=== PATIENT | female | born 1985 | race Caucasian/White ===

== ENCOUNTER 2024-12-11 10:46 | Observation (INO) | payer MEDICAID, OTHER ==
[2024-12-11] MEDS ORDERED: PREN1TAB71 OR (11:01)
--- NOTE | 2024-12-11 11:57 | DVH ---
BIOPHYSICAL PROFILE HISTORY: GDMA2 TECHNIQUE: Multiple transabdominal real-time grayscale sonographic images through the gravid uterus of the fetus with duplex Doppler color flow and M-mode spectral analysis FINDINGS: BIOPHYSICAL PROFILE: breathing score: 2 movement score: 2 tone score: 2 Quantitative ZULEYMA score: 2 (ZULEYMA: 12.9 Cm.) Total score: 8 The cervix was not seen Single live fetus in cephalic presentation. heart rate 139 beats per minute. Grade II anterior placenta without previa or abruption IMPRESSION: Biophysical profile score: 8
[2024-12-11] MEDS ORDERED: CHOL20007 PO (12:24)
[2024-12-11] MEDS ORDERED: METF-370 PO (12:24)
--- NOTE | 2024-12-12 14:29 | DVHDS2 ---
Physician Discharge Progress N Final Diagnosis: gdm Operations or Procedures: Operations or Procedures nst,sono Condition on Discharge: Good Disposition: Home Discharge Instructions: Diet: Consistent carbohydrate Activity: No Restrictions, As Tolerated Medications: na Follow Up Care: Specialist: 3d Discharge Statement: "Patient was advised to return to the ER or call 911 if any headaches, dizziness, shortness of breath, chest pain, abdominal pain, bleeding, fevers, or worsening of medical condition. Patient was counseled about treatment plan, medications, possible side effects, patientverbalized understanding. All questions were answered to the best of my ability. This discharge took greater then 30 minutes in planning, reviewing documentation, counseling the patient, and discussing with other team members." Visit Coding OBGYN Date of Service: Dec 11, 2024 Billing Provider: USMAN EPSTEIN DO CHECKERING MACHINE OPERATOR Common Visit Codes: [id number] INP/OBS CARE(HIGH) CHECKERING MACHINE OPERATOR Procedure Codes: 84694-79- NON-STRESS TEST USMAN EPSTEIN DO Dec 12, 2024 14:29
== END 2024-12-11 12:20 | disposition home or self-care (01) ==
LOC: UNDOADMOB 10:46 → LDRP 10:46 → UNDODISOB 12:20
PROVIDERS: ADMIT Obstetrics & Gynecology; ATTEND Obstetrics & Gynecology
DX: O24.419 Gestational diabetes mellitus in pregnancy, unspecified control (principal); Z98.890 Other specified postprocedural states; Z79.899 Other long term (current) drug therapy; Z3A.33 33 weeks gestation of pregnancy
CPT/HCPCS: 76818; 81002; 82948; 82962; G0378; 76819

== ENCOUNTER 2024-12-14 09:54 | Observation (INO) | payer MEDICAID ==
[~2024-12-14] VITALS: Ht 165.1 cm; Wt 81.6 kg
[~2024-12-14 09:54] MED LIST: CHOL20007 PO; METF-370 PO; PREN1TAB71 OR
--- NOTE | 2024-12-14 10:50 | DVH ---
BIOPHYSICAL PROFILE HISTORY: GDMA2 TECHNIQUE: Multiple transabdominal real-time grayscale sonographic images through the gravid uterus of the fetus with duplex Doppler color flow and M-mode spectral analysis FINDINGS: BIOPHYSICAL PROFILE: breathing score: 2 movement score: 2 tone score: 2 Quantitative ZULEYMA score: 2 (ZULEYMA: 15.3 Cm.) Total score: 8/8 Single live fetus in cephalic presentation. heart rate 152 beats per minute. Anterior placenta without previa or abruption Biophysical profile score 8/8 corresponding to an NANCY of 01/27/25 IMPRESSION: Biophysical profile score: 8/8
--- NOTE | 2024-12-19 14:40 | DVHDS2 ---
Physician Discharge Progress N Final Diagnosis: gdm 33wks Operations or Procedures: Operations or Procedures nst,sono Condition on Discharge: Good Disposition: Home Discharge Instructions: Diet: Consistent carbohydrate Activity: Light activity Medications: na Follow Up Care: Specialist: 3d Discharge Statement: "Patient was advised to return to the ER or call 911 if any headaches, dizziness, shortness of breath, chest pain, abdominal pain, bleeding, fevers, or worsening of medical condition. Patient was counseled about treatment plan, medications, possible side effects, patientverbalized understanding. All questions were answered to the best of my ability. This discharge took greater then 30 minutes in planning, reviewing documentation, counseling the patient, and discussing with other team members." Visit Coding OBGYN Date of Service: Dec 14, 2024 Billing Provider: USMAN EPSTEIN DO EARLY CHILDHOOD EDUCATION SPECIALIST Common Visit Codes: 74258-[id number] OBS CARE (HIGH) EARLY CHILDHOOD EDUCATION SPECIALIST Procedure Codes: 09887-65- NON-STRESS TEST USMAN EPSTEIN DO Dec 19, 2024 14:40
== END 2024-12-14 11:33 | disposition home or self-care (01) ==
LOC: LDRP 09:54
PROVIDERS: ADMIT Obstetrics & Gynecology; ATTEND Obstetrics & Gynecology
DX: O24.419 Gestational diabetes mellitus in pregnancy, unspecified control (principal); Z3A.33 33 weeks gestation of pregnancy; Z79.899 Other long term (current) drug therapy
CPT/HCPCS: 76818; 81002; 82948; 82962; 94760; G0378; 76819

== ENCOUNTER 2024-12-18 06:09 | Observation (INO) | payer MEDICAID ==
--- NOTE | 2024-12-18 08:51 | DVH ---
BIOPHYSICAL PROFILE HISTORY: gdma1 TECHNIQUE: Multiple transabdominal real-time grayscale sonographic images through the gravid uterus of the fetus with duplex Doppler color flow and M-mode spectral analysis FINDINGS: BIOPHYSICAL PROFILE: breathing score: 2 movement score: 2 tone score: 2 Quantitative ZULEYMA score: 2 (ZULEYMA: 12.5 Cm.) Total score: 8 The cervix not well visualized. Single live fetus in cephalic presentation. heart rate 134 beats per minute. Anterior placenta without previa or abruption IMPRESSION: Biophysical profile score: 8/8
--- NOTE | 2024-12-19 12:39 | DVHDS2 ---
Physician Discharge Progress N Final Diagnosis: gdm 34 wks Operations or Procedures: Operations or Procedures nst,sono Condition on Discharge: Good Disposition: Home Discharge Instructions: Diet: Regular Activity: No Restrictions, As Tolerated Medications: na Follow Up Care: Specialist: 4d Discharge Statement: "Patient was advised to return to the ER or call 911 if any headaches, dizziness, shortness of breath, chest pain, abdominal pain, bleeding, fevers, or worsening of medical condition. Patient was counseled about treatment plan, medications, possible side effects, patientverbalized understanding. All questions were answered to the best of my ability. This discharge took greater then 30 minutes in planning, reviewing documentation, counseling the patient, and discussing with other team members." Visit Coding OBGYN Date of Service: Dec 18, 2024 Billing Provider: USMAN EPSTEIN DO FABRIC WORKER FOREMAN Common Visit Codes: 63295-[id number] OBS CARE (HIGH) FABRIC WORKER FOREMAN Procedure Codes: 27447-80- NON-STRESS TEST USMAN EPSTEIN DO Dec 19, 2024 12:39
== END 2024-12-18 10:22 | disposition home or self-care (01) ==
LOC: LDRP 08:05 → UNDOADMOB 08:05 → LDRP 08:13
PROVIDERS: ADMIT Obstetrics & Gynecology; ATTEND Obstetrics & Gynecology
DX: O24.419 Gestational diabetes mellitus in pregnancy, unspecified control (principal); Z98.890 Other specified postprocedural states; Z79.899 Other long term (current) drug therapy; Z3A.34 34 weeks gestation of pregnancy
CPT/HCPCS: 59025; 76819; 81002; 82948; 82962; 94760; G0378

== ENCOUNTER 2024-12-21 09:51 | Observation (INO) | payer MEDICAID ==
--- NOTE | 2024-12-21 10:37 | DVH ---
Procedure: US BIOPHYSICAL PROFILE 12/21/2024 10:05 AM Indication: GDMA2 Comparison: US BIOPHYSICAL PROFILE on DOS: 12/18/24, US BIOPHYSICAL PROFILE on DOS: 12/14/24, US BIOPHYSI KARYL PROFILE on DOS: 12/11/24 Technique: Sonogram of gravid uterus utilizing grayscale and color techniques. FINDINGS: Single living intrauterine gestation. Presentation: Cephalic Placenta: Anterior heart rate: 140 bpm ZULEYMA: 10.9 cm, DVP: 4 cm Maternal cervix: Not visualized Biophysical Profile: breathing score: 2 movement score: 2 tone: 2 Quantitative ZULEYMA score: 2 Total score: 8/8 IMPRESSION: 1. Single living as above. 2. Biophysical profile score: 8/8.
--- NOTE | 2024-12-21 12:44 | DVHDS2 ---
Physician Discharge Progress N Final Diagnosis: 34wks gdm Operations or Procedures: Operations or Procedures nst,sono Condition on Discharge: Good Disposition: Home Discharge Instructions: Diet: Consistent carbohydrate Activity: No Restrictions, As Tolerated Medications: na Follow Up Care: Specialist: 1w Discharge Statement: "Patient was advised to return to the ER or call 911 if any headaches, dizziness, shortness of breath, chest pain, abdominal pain, bleeding, fevers, or worsening of medical condition. Patient was counseled about treatment plan, medications, possible side effects, patientverbalized understanding. All questions were answered to the best of my ability. This discharge took greater then 30 minutes in planning, reviewing documentati on, counseling the patient, and discussing with other team members." Visit Coding OBGYN Date of Service: Dec 21, 2024 Billing Provider: USMAN EPSTEIN DO SECURITY INCIDENT RESPONSE ENGINEER Common Visit Codes: 22290-[id number] OBS CARE (HIGH) SECURITY INCIDENT RESPONSE ENGINEER Procedure Codes: 32975-91- NON-STRESS TEST USMAN EPSTEIN DO Dec 21, 2024 12:44
[2024-12-28] MEDS ORDERED: CEPH250C PO (09:10)
== END 2024-12-21 11:30 | disposition home or self-care (01) ==
LOC: LDRP 09:51
PROVIDERS: ADMIT Obstetrics & Gynecology; ATTEND Obstetrics & Gynecology
DX: O24.419 Gestational diabetes mellitus in pregnancy, unspecified control (principal); Z3A.34 34 weeks gestation of pregnancy; Z79.899 Other long term (current) drug therapy
CPT/HCPCS: 59025; 76819; 81002; 82948; 82962; 94760; G0378

== ENCOUNTER 2024-12-25 06:14 | Observation (INO) | payer MEDICAID ==
--- NOTE | 2024-12-25 09:13 | DVH ---
CLINICAL HISTORY: Gestational diabetes. COMPARISON: US BIOPHYSICAL PROFILE on DOS: 12/21/24, US BIOPHYSICAL PROFILE on DOS: 12/18/24, US BIOPHYS ICAL PROFILE on DOS: 12/14/24 TECHNIQUE: biophysical profile was performed. Transabdominal sonographic images of the fetus we re obtained. FINDINGS: The fetus is in cephalic position. heart rate measures 139 BPM. Amniotic fluid index measures 11.0 cm. The placenta is anterior in position. BPP profile is an overall score of 8/8, with 2/2 points for breathing, with at least one episode of breathing over a 30 second duration during a 30 minute observation, 2/2 points for m ovements, with 3 or more discrete body or limb movements, 2/2 points for tone, with one or more episodes of extremity extension with return to flexion, or opening and closing of hand, and 2/ 2 points for amniotic fluid, with at least 1 pocket of amniotic fluid that measures 2 cm in 2 perpend icular planes. IMPRESSION: BPP score of 8/8.
--- NOTE | 2024-12-25 22:55 | DVHDS2 ---
Discharge Summary Date of Admission Dec 25, 2024 at 08:10 Date of Discharge: Dec 25, 2024 Admitting Diagnosis GDM A2 NST 35 10/20 Brief Hx & Hospital Course: reassuring fht Consults/Reason for consult GDM A2 Condition at Discharge: Good Final Diagnosis/Problems List Discharge Disposition: Home Discharge Instruct/Medications Diet: Consistent carbohydrate Activity: No Restrictions, As Tolerated Activity comment: kick counts labor precautions Discharge Statement: "Patient was advised to return to the ER or call 911 if any headaches, dizziness, shortness of breath, chest pain, abdominal pain, bleeding, fevers, or worsening of medical condition. Patient was counseled about treatment plan, medications, possible side effects, patientverbalized understanding. All questions were answered to the best of my ability. This discharge took greater then 30 minutes in planning, reviewing documentation, counseling the patient, and discussing with other team members." ASSESSMENT ASSESSMENT Assessment Visit Coding OBGYN Date of Service: Dec 25, 2024 Billing Provider: REAL ZAMUDIO DO IT SERVICE MANAGER Common Visit Codes: 19190-MLO/OBS SAME DATE (LOW), 42381-KML/OBS SAME DATE (MOD), 60302-IIS/OBS SAME DATE (HIGH) IT SERVICE MANAGER Procedure Codes: 64643-11- NON-STRESS TEST REAL ZAMUDIO DO Dec 25, 2024 22:55
[2024-12-28] MEDS ORDERED: CEPH250C PO (09:10)
== END 2024-12-25 09:43 | disposition home or self-care (01) ==
LOC: LDRP 08:10
PROVIDERS: ADMIT Obstetrics & Gynecology; ATTEND Obstetrics & Gynecology
DX: O24.419 Gestational diabetes mellitus in pregnancy, unspecified control (principal); Z79.899 Other long term (current) drug therapy; Z3A.35 35 weeks gestation of pregnancy
CPT/HCPCS: 59025; 76819; 81002; 82948; 94760; G0378

== ENCOUNTER 2024-12-28 06:17 | Observation (INO) | payer MEDICAID ==
--- NOTE | 2024-12-28 08:54 | DVH ---
CLINICAL HISTORY: Gestational diabetes. COMPARISON: US BIOPHYSICAL PROFILE on DOS: 12/25/24, US BIOPHYSICAL PROFILE on DOS: 12/21/24, US BIOPHY SICAL PROFILE on DOS: 12/18/24 TECHNIQUE: biophysical profile was performed. Transabdominal sonographic images of the fetus we re obtained. FINDINGS: The fetus is in cephalic position. heart rate measures 138 BPM. Amniotic fluid index measures 11.5 cm. The placenta is anterior in position. No visualized evidence for placenta previa or abruption. BPP profile is an overall score of 8/8, with 2/2 points for breathing, with at least one episode of breathing over a 30 second duration during a 30 minute observation, 2/2 points for m ovements, with 3 or more discrete body or limb movements, 2/2 points for tone, with one or more episodes of extremity extension with return to flexion, or opening and closing of hand, and 2/ 2 points for amniotic fluid, with at least 1 pocket of amniotic fluid that measures 2 cm in 2 perpend icular planes. IMPRESSION: BPP score of 8/8.
[2024-12-28] MEDS ORDERED: CEPH250C PO ×2 (09:10)
--- NOTE | 2024-12-30 08:17 | DVHDS2 ---
Physician Discharge Progress N Final Diagnosis: gdm 35 wks Operations or Procedures: Operations or Procedures nst,sono Condition on Discharge: Good Disposition: Home Discharge Instructions: Diet: Consistent carbohydrate Activity: No Restrictions, As Tolerated Medications: na Follow Up Care: Specialist: 3d Discharge Statement: "Patient was advised to return to the ER or call 911 if any headaches, dizziness, shortness of breath, chest pain, abdominal pain, bleeding, fevers, or worsening of medical condition. Patient was counseled about treatment plan, medications, possible side effects, patientverbalized understanding. All questions were answered to the best of my ability. This discharge took greater then 30 minutes in planning, reviewing documentat ion, counseling the patient, and discussing with other team members." Visit Coding OBGYN Date of Service: Dec 28, 2024 Billing Provider: USMAN EPSTEIN DO FIRST AID OFFICER Common Visit Codes: 08669-[id number] INP/OBS CARE (HIGH) FIRST AID OFFICER Procedure Codes: 03406-48- NON-STRESS TEST USMAN EPSTEIN DO Dec 30, 2024 08:17
== END 2024-12-28 09:28 | disposition home or self-care (01) ==
LOC: UNDOADMOB 08:13 → LDRP 08:13 → UNDODISOB 09:28
PROVIDERS: ADMIT Obstetrics & Gynecology; ATTEND Obstetrics & Gynecology
DX: O24.419 Gestational diabetes mellitus in pregnancy, unspecified control (principal); Z3A.35 35 weeks gestation of pregnancy; Z79.899 Other long term (current) drug therapy; Z98.890 Other specified postprocedural states
CPT/HCPCS: 59025; 76819; 81002; 82948; 82962; G0378

== ENCOUNTER 2025-01-02 08:10 | Observation (INO) | payer MEDICAID ==
[~2025-01-02 08:10] MED LIST changes: +CEPH250C PO
--- NOTE | 2025-01-02 09:02 | DVH ---
BIOPHYSICAL PROFILE HISTORY: GDMA2 TECHNIQUE: Multiple transabdominal real-time grayscale sonographic images through the gravid uterus of the fetus with duplex Doppler color flow and M-mode spectral analysis FINDINGS: BIOPHYSICAL PROFILE: breathing score: 2 movement score: 2 tone score: 2 Quantitative ZULEYMA score: 2 (ZULEYMA: 14.0 Cm.) Total score: 8 The cervix not well visualized. Single live fetus in cephalic presentation. heart rate 138 beats per minute. Anterior placenta without previa or abruption IMPRESSION: Biophysical profile score: 9
--- NOTE | 2025-01-02 09:28 | DVHDS2 ---
Physician Discharge Progress N Final Diagnosis: testing for GDM, A2 Operations or Procedures: Operations or Procedures 39yo IUP@36.3wks VSS NST reactive FKC/PTL precautions reviewed Other Interventions Other Interventions [address] [address] Ph: [phone] DIAGNOSTIC IMAGING Diagnostic Imaging Report : [id number] Signed PATIENT: JANE PERERA ACCT: [id number] UNIT: [id number] : 1985 LOC: [facility] ROOM / BED: TRIAGE2 / A AGE / SEX: 39 / F ADM STATUS: ADM IN SERVICE 7 ORDERING PHYSICIAN: MYRA ROY CNM PROCEDURE(s): BPP - BIOPHYSICAL PROFILE REASON: GDMA2 ORDER NUMBER(s): [id number], ACCESSION NUMBER(s): [id number] BIOPHYSICAL PROFILE HISTORY: GDMA2 TECHNIQUE: Multiple transabdominal real-time grayscale sonographic images through the gravid uterus of the fetus with duplex Doppler color flow and M-mode spectral analysis FINDINGS: BIOPHYSICAL PROFILE: breathing score: 2 movement score: 2 tone score: 2 Quantitative ZULEYMA score: 2 (ZULEYMA: 14.0 Cm.) Total score: 8 The cervix not well visualized. Single live fetus in cephalic presentation. heart rate 138 beats per minute. Anterior placenta without previa or abruption IMPRESSION: Biophysical profile score: 9 ATED BY: LORY ARCEO MD DICTATED DATE/TIME: 01/02/25899 SIGNED BY: LORY ARCEO MD SIGNED DATE/TIME: 01/02/25899 CC: Condition on Discharge: Stable Disposition: Home Discharge Instructions: Diet: Consistent carbohydrate Activity: No Restrictions, As Tolerated Medications: see med list Follow Up Care: Specialist: f/u in 3 days Discharge Statement: "Patient was advised to return to the ER or call 911 if any headaches, dizz iness, shortness of breath, chest pain, abdominal pain, bleeding, fevers, or worsening of medical condition. Patient was counseled about treatment plan, medications, possible side effects, patientverbalized understanding. All questions were answered to the best of my ability. This discharge took greater then 30 minutes in planning, reviewing documentation, counseling the patient, and discussing with other team members." Visit Coding OBGYN Date of Service: Jan 02, 2025 Billing Provider: MYRA ROY CNM RAW SCALES OPERATOR Common Visit Codes: 61741-[id number] OBS CARE (HIGH) RAW SCALES OPERATOR Procedure Codes: 15830-64- NON-STRESS TEST MYRA ROY CNM Jan 02, 2025 09:28
== END 2025-01-02 09:18 | disposition home or self-care (01) ==
LOC: UNDOADMOB 08:10 → LDRP 08:10 → UNDODISOB 09:18
PROVIDERS: ADMIT Obstetrics & Gynecology; ATTEND Obstetrics & Gynecology
DX: O24.419 Gestational diabetes mellitus in pregnancy, unspecified control (principal); O09.529 Supervision of elderly multigravida, unspecified trimester; Z98.890 Other specified postprocedural states; Z79.899 Other long term (current) drug therapy; Z3A.36 36 weeks gestation of pregnancy
CPT/HCPCS: 59025; 76819; 81002; 82948; 82962; 94760; G0378

== ENCOUNTER 2025-01-05 08:55 | Observation (INO) | payer MEDICAID ==
--- NOTE | 2025-01-05 10:05 | DVH ---
BIOPHYSICAL PROFILE HISTORY: GDMA2 Comparison Study: none TECHNIQUE: Multiple real-time grayscale sonographic images through the gravid uterus of the fetus wi th duplex Doppler color flow and M-mode spectral analysis FINDINGS: BIOPHYSICAL PROFILE: breathing score: 2 movement score: 2 tone score: 2 Quantitative ZULEYMA score: 2 (ZULEYMA: 9.8 Cm.) Total score: 8 The cervix is not visualized Single live fetus in cephalic presentation. heart rate 161 beats per minute. Anterior placenta without previa or abruption IMPRESSION: Biophysical profile score: 8
--- NOTE | 2025-01-05 18:13 | DVHDS2 ---
Physician Discharge Progress N Final Diagnosis: GDMA2 Secondary Diagnosis: Encounter for NST/BPP Operations or Procedures: Operations or Procedures NST/BPP/ZULEYMA Commentary: Commentary PATIENT: JANE PERERA ACCT: [id number] UNIT: [id number] : 1985 LOC: [facility] ROOM / BED: [facility] / A AGE / SEX: 39 / F ADM STATUS: ADM IN SERVICE 0915 ORDERING PHYSICIAN: KANNAN SHI DO PROCEDURE(s): BPP - BIOPHYSICAL PROFILE REASON: GDMA2 ORDER NUMBER(s): [id number], ACCESSION NUMBER(s): [id number] BIOPHYSICAL PROFILE HISTORY: GDMA2 Comparison Study: none TECHNIQUE: Multiple real-time grayscale sonographic images through the gravid uterus of the fetus with duplex Doppler color flow and M-mode spectral analysis FINDINGS: BIOPHYSICAL PROFILE: breathing score: 2 movement score: 2 tone score: 2 Quantitative ZULEYMA score: 2 (ZULEYMA: 9.8 Cm.) Total score: 8 The cervix is not visualized Single live fetus in cephalic presentation. heart rate 161 beats per minute. Anterior placenta without previa or abruption IMPRESSION: Biophysical profile score: 8 ATED BY: DANIEL NELSON MD DICTATED DATE/TIME: 01/05/25 1002 Condition on Discharge: Stable Disposition: Home Discharge Instructions: Diet: Consistent carbohydrate Activity: No Restrictions, As Tolerated Follow Up/Referral: as scheduled Medications: N/A Follow Up Care: Discharge Statement: "Patient was advised to return to the ER or call 911 if any headaches, dizziness, shortness of breath, chest pain, abdominal pain, bleeding, fevers, or worsening of medical condition. Patient was counseled about treatment plan, medications, possible side effects, patientverbalized understanding. All questions were answered to the best of my ability. This discharge took greater then 30 minutes in planning, reviewing documentation, counseling the patient, and discussing with other team members." Visit Coding OBGYN Date of Service: Jan 05, 2025 Billing Provider: KANNAN SHI DO NURSE INTERN Common Visit Codes: 13658-KJD/OBS SAME DATE (MOD) KANNAN SHI DO Jan 05, 2025 18:13
== END 2025-01-05 10:27 | disposition home or self-care (01) ==
LOC: UNDOADMOB 08:55 → LDRP 08:55 → UNDODISOB 10:27
PROVIDERS: ADMIT Obstetrics & Gynecology; ATTEND Obstetrics & Gynecology
DX: O24.419 Gestational diabetes mellitus in pregnancy, unspecified control (principal); Z98.890 Other specified postprocedural states; Z79.899 Other long term (current) drug therapy; Z3A.36 36 weeks gestation of pregnancy
CPT/HCPCS: 59025; 76819; 81002; 82948; 82962; 94760; G0378

== ENCOUNTER 2025-01-10 06:45 | Observation (INO) | payer MEDICAID ==
--- NOTE | 2025-01-10 13:45 | DVH ---
BIOPHYSICAL PROFILE HISTORY: GDMA2 TECHNIQUE: Multiple transabdominal real-time grayscale sonographic images through the gravid uterus of the fetus with duplex Doppler color flow and M-mode spectral analysis FINDINGS: BIOPHYSICAL PROFILE: breathing score: 2 movement score: 2 tone score: 2 Quantitative ZULEYMA score: 2 (ZULEYMA: 11.5 Cm.) Total score: 8 The cervix is not well-visualized Single live fetus in cephalic presentation. heart rate 146 beats per minute. Anterior placenta without previa or abruption. There appears to be a nuchal cord . IMPRESSION: Biophysical profile score:8 There appears to be a nuchal cord.
--- NOTE | 2025-01-10 15:50 | DVHDS2 ---
Physician Discharge Progress N Final Diagnosis: gdm 37wks Operations or Procedures: Operations or Procedures nst reviewed reactive sono nl bpp 8-8 nl Condition on Discharge: Good Disposition: Home Discharge Instructions: Diet: Consistent carbohydrate Activity: Light activity Medications: na Follow Up Care: Specialist: 4d Discharge Statement: "Patient was advised to return to the ER or call 911 if any headaches, dizziness, shortness of breath, chest pain, abdominal pain, bleeding, fevers, or worsening of medical condition. Patient was counseled about treatment plan, medications, possible side effects, patientverbalized understanding. All questions were answered to the best of my ability. This discharge took greater then 30 minutes in planning, reviewing documentation, counseling the patient, and discussing with other team members." Visit Coding OBGYN Date of Service: Jan 10, 2025 Billing Provider: USMAN EPSTEIN DO FINANCIAL ADVISER Common Visit Codes: 16962-EPSAWKT OBS CARE (HIGH) FINANCIAL ADVISER Procedure Codes: 98618-89- NON-STRESS TEST USMAN EPSTEIN DO Jan 10, 2025 15:50
== END 2025-01-10 13:48 | disposition home or self-care (01) ==
LOC: LDRP 10:50
PROVIDERS: ADMIT Obstetrics & Gynecology; ATTEND Obstetrics & Gynecology
DX: O24.419 Gestational diabetes mellitus in pregnancy, unspecified control (principal); Z79.899 Other long term (current) drug therapy; Z3A.37 37 weeks gestation of pregnancy
CPT/HCPCS: 59025; 76819; 81002; 82948; 82962; 94760; G0378

== ENCOUNTER 2025-01-13 12:02 | Observation (INO) | payer MEDICAID ==
--- NOTE | 2025-01-13 12:50 | DVH ---
OB ULTRASOUND, LIMITED CLINICAL INDICATION: gdma2 TECHNIQUE: Multiple grayscale ultrasound and M-mode images were obtained of the pelvis for evaluation of intrauterine . COMPARISON: US BIOPHYSICAL PROFILE on DOS: 01/10/25, US BIOPHYSICAL PROFILE on DOS: 01/05/25, US BIOPHY SICAL PROFILE on DOS: 01/02/25 FINDINGS /impression: Biophysical profile: 8/8 breathin movements: 2 tone: 2, ZULEYMA 13.8 cm Amniotic fluid: 2 heart rate 138 position cephalic Placenta is anterior.
--- NOTE | 2025-01-13 18:25 | DVHDS2 ---
Discharge Summary Date of Admission January 13, 2025 at 12:02 Date of Discharge: Sep 28, 2012 Admitting Diagnosis GDM A238 wks Labs/Diagnostic Data: Laboratory Results Test 01/13/25 12:42 POC Glucose 94 mg/dl (70-106) Brief Hx & Hospital Course: US NST reassuring Condition at Discharge: Good Final Diagnosis/Problems List 35 weeks Discharge Disposition: Home Discharge Instruct/Medications Diet: Regular Activity: No Restrictions, As Tolerated Activity comment: kick counts labor precautions Follow Up/Referral: as scheduled Discharge Statement: "Patient was advised to return to the ER or call 911 if any headaches, dizziness, shortness of breath, chest pain, abdominal pain, bleeding, fevers, or worsening of medical condition. Patient was counseled about treatment plan, medications, possible side effects, patientverbalized understanding. All questions were answered to the best of my ability. This discharge took greater then 30 minutes in planning, reviewing documentation, counseling the patient, and discussing with other team members." ASSESSMENT ASSESSMENT Assessment Visit Coding OBGYN Date of Service: January 13, 2025 Billing Provider: REAL ZAMUDIO DO OFFICE CHAIR ASSEMBLER Common Visit Codes: 66870-IGH/OBS SAME DATE (LOW), 90022-QDS/OBS SAME DATE (MOD), 29720-ZJQ/OBS SAME DATE (HIGH) OFFICE CHAIR ASSEMBLER Procedure Codes: 05185-49- NON-STRESS TEST REAL ZAMUDIO DO January 13, 2025 18:25
== END 2025-01-13 13:39 | disposition home or self-care (01) ==
LOC: LDRP 12:02
PROVIDERS: ADMIT Obstetrics & Gynecology; ATTEND Obstetrics & Gynecology
DX: O24.419 Gestational diabetes mellitus in pregnancy, unspecified control (principal); Z98.890 Other specified postprocedural states; Z79.899 Other long term (current) drug therapy; Z3A.38 38 weeks gestation of pregnancy
CPT/HCPCS: 59025; 76819; 81002; 82948; 82962; 94760; G0378

== ENCOUNTER 2025-01-17 06:25 | Observation (INO) | payer MEDICAID ==
--- NOTE | 2025-01-17 12:06 | DVH ---
BIOPHYSICAL PROFILE HISTORY: GDMA2 Comparison Study: US BIOPHYSICAL PROFILE on DOS: 01/13/25, US BIOPHYSICAL PROFILE on DOS: 01/10/25, US B IOPHYSICAL PROFILE on DOS: 01/05/25, US BIOPHYSICAL PROFILE on DOS: 01/02/25, US BIOPHYSICAL PROFILE on DOS: 12/28/24 TECHNIQUE: Multiple real-time grayscale sonographic images through the gravid uterus of the fetus wi th duplex Doppler color flow and M-mode spectral analysis FINDINGS: BIOPHYSICAL PROFILE: breathing score: 2 movement score: 2 tone score: 2 Quantitative ZULEYMA score: 2 (ZULEYMA: 14.1 Cm.) Total score: 8 The cervix is not visualized Single live fetus in cephalic presentation. heart rate 155 beats per minute. Grade 2, anterior placenta without previa or abruption IMPRESSION: Biophysical profile score: 8/8
--- NOTE | 2025-01-24 08:22 | DVHDS2 ---
Physician Discharge Progress N Final Diagnosis: gdm 38wks Operations or Procedures: Operations or Procedures nst reactive reviwed,sono Condition on Discharge: Good Disposition: Home Discharge Instructions: Diet: Regular Activity: No Restrictions, As Tolerated Medications: na Follow Up Care: Specialist: 2d Discharge Statement: "Patient was advised to return to the ER or call 911 if any headaches, dizziness, shortness of breath, chest pain, abdominal pain, bleeding, fevers, or worsening of medical condition. Patient was counseled about treatment plan, medications, possible side effects, patient�verbalized understanding. All questions were answered to the best of my ability. This discharge took greater then 30 minutes in planning, reviewing documentat ion, counseling the patient, and discussing with other team members." Visit Coding OBGYN Date of Service: January 17, 2025 Billing Provider: USMAN EPSTEIN DO RN ASSESSMENT Common Visit Codes: [id number] OBS CARE (HIGH) RN ASSESSMENT Procedure Codes: 84835-53- NON-STRESS TEST USMAN EPSTEIN DO January 24, 2025 08:22
== END 2025-01-17 12:21 | disposition home or self-care (01) ==
LOC: UNDOADMOB 10:55 → LDRP 10:55 → UNDODISOB 12:21
PROVIDERS: ADMIT Obstetrics & Gynecology; ATTEND Obstetrics & Gynecology
DX: O24.419 Gestational diabetes mellitus in pregnancy, unspecified control (principal); Z3A.38 38 weeks gestation of pregnancy
CPT/HCPCS: 59025; 76819; 81002; 82962; 94760; G0378

== ENCOUNTER 2025-01-19 20:51 | Inpatient (IN) | payer MEDICAID ==
[~2025-01-19] VITALS: Ht 162.6 cm; Wt 81.6 kg
[2025-01-19] MEDS ORDERED: LIDOCAINE 2%HCL (LOCAL ANESTH.) INJ 20ML MDV IJ PRN (21:15)
[2025-01-19] MEDS ORDERED: NALBUPHINE HCL 10 MG/1ml INJECTION IV PRN (21:15)
[2025-01-19] MEDS ORDERED: PENICILLIN G POT 5MIL/D5 50ML 50 ML IV ONE (21:30)
[2025-01-19 22:16] LABS: Alanine Aminotransferase 15 U/L (7-40); Albumin 3.7 g/dL (3.2-4.8); Alkaline Phosphatase 83 U/L (46-116); Anion Gap 11 (5-15); Aspartate Aminotransferase 19 U/L (13-40); BUN/Creatinine Ratio 12.9 (10.0-20.0); Basophils # (auto) 0.1 10 ^3/uL (0-0.2); Basophils % (auto) 0.7 % (0.0-2.0); Bilirubin, Total 0.5 mg/dL (0.2-1.0); Blood Urea Nitrogen 12 mg/dL (9-23); Carbon Dioxide 22 mmol/L (20-31); Chloride 105 mmol/L (98-107); Eosinophils # (auto) 0.1 10 ^3/uL (0-0.8); Eosinophils % (auto) 1.4 % (0.0-7.0); Hematocrit 38.5 % (36.0-46.0); Hemoglobin 13.4 g/dL (12.2-16.2); Lymphocytes % (auto) 31.6 % (10.0-50.0); Mean Corpuscular Hemoglobin 31.3 pg (28.0-32.0); Mean Corpuscular Hgb Conc. 34.7 g/dL (32.0-36.0); Monocytes # (auto) 0.8 10 ^3/uL (0-1.3); Monocytes % (auto) 8.7 % (0.0-12.0); Neutrophils # (auto) 5.5 10 ^3/uL (1.6-8.6); Neutrophils % (auto) 57.6 % (37.0-80.0); Nucleated Red Blood Cells % 0.1 %; Platelet Count (auto) 171 10^3/uL (140-450); Potassium 3.8 mmol/L (3.5-5.1); Red Blood Cells 4.28 10^6/uL (4.0-5.20); Red Cell Distribution Width 14.2 % (11.8-14.3); Sodium 138 mmol/L (136-145); White Blood Cell 9.5 10^3/uL (4.4-10.8)
--- NOTE | 2025-01-19 22:18 | DVHHP2 ---
OB CC & HPI Date Date of Admission: January 19, 2025 Patient Identification: : 3 Para: 1 EDC: January 27, 2025 EGA: 38w 6d Chief Complaints: Reason for admission: induction of labor Admission Nurse Assessment Rev: Yes History of Present Complaints 39yo G3,1011 with EDC of 01/27/[address] for scheduled IOL for GDMA2. She reports normal movement, no VB, no leakage of fluid, no JAQUEZ, vision changes or epigastric pain. Past Medical History Cardiac: No pertinent Hx Pulmonary: No pertinent Hx Central Nervous System: No pertinent Hx GI: No pertinent Hx Hemotology/Oncology: No pertinent Hx Hepatobiliary: No pertinent Hx Psychiatric: No pertinent Hx Musculoskeletal: No pertinent Hx Rheumotologic: No pertinent Hx Infectious Disease: No peritnent Hx ENT: No pertinent Hx Renal/: No pertinent Hx Endocrine: No pertinent Hx Dermatology: No pertinent Hx Others Former cigarette smoker Past Surgical History: Appendectomy, Other (Right Hip surgery due to accident) OB History OB History Care: Good Care Ultrasounds: Normal mid trimester US Obstetrical Complications: Gestational Diabetes Medical Complications: None Other Concerns: none Allergies: Coded Allergies: NO KNOWN ALLERGIES (Unverified , 02/13/12) Home Meds Reported Medications Cephalexin (KEFLEX CAPSULE) 250 Mg Cp, 500 MG PO Q6HR for 7 Days 12/28/24 Cholecalciferol (VITAMIN D3) 2,000 Unit Tab, 1 TAB PO DAILY, #30 TAB 5 Refills 12/11/24 Metformin Hydrochloride (Metformin Hcl) 500 Mg Tab, 500 MG PO DAILY for 30 Days, MG 12/11/24 Vit W/ Ferrous Fumara (PNV PLUS MULTIVI) Plus Tab, 1 OR, TAB 12/11/24 Current Medications Current Medications Medications (Trade) Dose Ordered Sig/Laura Route PRN Reason Start Time Stop Time Status Last Admin Lactated Ringer's 1,000 ml @ 125 mls/hr Q8H IV 01/19/25 21:15 Nalbuphine HCl (Nubain) 10 mg Q4HP PRN IV MODERATE PAIN (4-6 PAIN SCALE) 01/19/25 21:15 Penicillin G Potassium [id number] units/Dextrose 50 ml @ 100 mls/hr Q4H IV 01/20/25 01:30 Witsven Ramos (Jana) 1 pad PRN PRN TOP PERINEAL AREA DISCOMFORT 01/19/25 21:15 Sodium Lauryl Sulfate (Phisoderm) 240 ml PRN PRN TOP PERINEAL AREA DISCOMFORT 01/19/25 21:15 Benzocaine (Dermoplast) 1 applic PRN PRN TOP PERINEAL AREA DISCOMFORT 01/19/25 21:15 Misoprostol (Cytotec) 50 mcg Q4HPRN PRN PO CERVICAL RIPENING 01/19/25 21:15 Lidocaine HCl (Xylocaine) 20 ml ONCE PRN IJ PERINEAL AREA DISCOMFORT 01/19/25 21:15 Family & Social History Family/Social History Past Family/Social History: No pertinent family history Blood Type: A+ Rubella: immune RPR/VDRL: Negative GBS Status: Negative HBsAG: Negative Review of Systems Constitutional: No symptom reported Ears, Nose, & Throat: No symptom reported Eyes: No symptom reported Pulmonary/Respiratory: No symptom reported Cardiovascular: No symptom reported Gastrointestinal: No symptom reported Genitourinary: No symptom reported Musculoskeletal: No symptom reported Skin: No symptom reported Psychiatric: No symptom reported Endocrine: No symptom reported Hemotologic/Lymphatic: No symptom reported OB Admission Exam Physical Exam HEENT: Nasal Mucosa Normal, Eyes non-injected, Oropharynx Normal, Moist Membranes Heart: Rhythm Normal Lungs: Clear Abdomen: Non tender Extremities: Normal Reflexes: Normal Cervical Dilatation: Fingertip (VE by RN) Effacement: 0% Station: Ballotable Membranes: Intact Heart Rate: 130's Accelerations: Accelerations Present Decelerations: No Decelerations Radio Performer Variability: Average (6-25) Contractions on Admission: None OB Plan Plan Admitting Diagnosis: IUP at 38w 6d GDMA2 AMA IOL Plan: Induction Induction Methd: Misoprostol protocol Other Plan: IOL process, cervical ripening with medication, cervical ripening balloon, oxytocin etc including the risks, benefits and options discussed with the patient & partner. Informed consent obtained. Risk of pain, bleeding, infection, discussed with the patient and partner Consent for possible blood transfusion obtained. All questions answered. Admit to Place for scheduled IOL Routine L&D admission orders Misoprostol per protocol EFM per policy & protocol Intrauterine resuscitation PRN Labor analgesia PRN Encourage frequent position change and ambulation to facilitate labor & descent Supportive Care Anticipate Visit Coding OBGYN Date of Service: January 19, 2025 Billing Provider: YARON BURDICK CNM [employer]CHER Common Visit Codes: [id number] INP/OBS CARE (HIGH) [employer] Procedure Codes: 20111-03- NON-STRESS TEST YARON BURDICK CNM January 19, 2025 22:18
[2025-01-19 22:19] LABS: Glucose 109 mg/dL (74-106)
[2025-01-19 22:33] LABS: INR 0.96 (0.9-1.15); Partial Thromboplastin Time 28.9 SEC (24.5-34.5); Prothrombin Time 10.2 sec (9.3-11.8)
[2025-01-19 23:49] LABS: Urine Bacteria FEW /hpf (None Seen); Urine Blood Negative /uL (Negative); Urine Clarity Turbid (Clear); Urine Color Colorless (Yellow); Urine Protein, UAD Negative (Negative); Urine Specific Gravity 1.012 (1.001-1.035); Urine Squamous Epithelial Cell MOD /hpf (<5); Urine Urobilinogen Normal (Negative); Urine WBC 10 /HPF (0-5)
[2025-01-20 00:16] LABS: Amphetamine Screen, Urine Neg (NEGATIVE); Barbiturate Scree,Urine Neg (NEGATIVE); Benzodiazephine Screen, Urine Neg (NEGATIVE); Cannabinoid Screen, Urine Neg (NEGATIVE); Cocaine Screen, Urine Neg (NEGATIVE); Opiate Scree,Urine Neg (NEGATIVE); Phencyclidine Screen, Urine Neg (NEGATIVE)
[2025-01-20] MEDS: miSOPROStol 50 MCG per PRE-CUT 1/2 TAB PO PRN (00:25)
[2025-01-20] MEDS ORDERED: PENICILLIN G POTASSIUM 2,500,000 UNITS in D5W 5% 50 ML IV SCH (01:30)
--- NOTE | 2025-01-20 04:40 | DVHPN2 ---
OB Labor Progress Note Date and Time Seen Date Seen: January 20, 2025 Time Seen: 04:30 Subjective Patient reports: No new complaints Objective Vital Signs VSS Monitoring Method Monitoring Method: External Heart Rate Heart Rate Baseline: 135 Heart Rate Variability: Moderate Presence of FHR Accelerations: Yes Presence of FHR Decelerations: No Changes in Trends of Patterns: No Are all 5 Components of the FH: Yes Contractions Contractions Frequency: Occasional Duration of Contraction: 60 Contractions Intensity: Mild Contractions Resting Tone: Relaxed Membranes Membranes: Intact Vaginal Exam Vag Exam Deferred: No Vaginal Exam Dilation: 0 Vaginal Exam Effacement: 0 Vaginal Exam Station: -4 Vaginal Exam Presentation: VTX Vaginal Exam Show: None Medications Medications - Pitocin: No Medication - Epidural: No Medication - Other Misoprostol Lab Results Lab Results Current Medications Medications (Trade) Dose Ordered Sig/Laura Start Time Stop Time Status Last Admin Dose Admin Lactated Ringer's 1,000 ml @ 125 mls/hr Q8H 01/19/25 21:15 01/20/25 05:05 125 MLS/HR Nalbuphine HCl (Nubain) 10 mg Q4HP PRN 01/19/25 21:15 Witch Rachel (Tucks) 1 pad PRN PRN 01/19/25 21:15 01/20/25 05:05 1 PAD Sodium Lauryl Sulfate (Phisoderm) 240 ml PRN PRN 01/19/25 21:15 01/20/25 05:05 240 ML Benzocaine (Dermoplast) 1 applic PRN PRN 01/19/25 21:15 01/20/25 05:05 1 APPLIC Misoprostol (Cytotec) 50 mcg Q4HPRN PRN 01/19/25 21:15 01/20/25 04:45 50 MCG Lidocaine HCl (Xylocaine) 20 ml ONCE PRN 01/19/25 21:15 Laboratory Tests Test 01/20/25 05:13 01/19/25 22:50 01/19/25 21:43 Range/Units POC Glucose 114 H 70-106 mg/dl Urine Color Colorless Yellow Urine Clarity Turbid H Clear Urine pH 6.0 5.0-9.0 Urine Specific [place] 1.012 1.001-1.035 Urine Protein Negative Negative Urine Ketones 1+ H Negative Urine Blood Negative Negative /uL Urine Nitrite Negative Negative Urine Bilirubin Negative Negative Urine Urobilinogen Normal Negative mg/dL Urine Leukocyte Esterase 3+ Negative /uL Urine RBC 1 0 - 4 /hpf Urine Microscopic WBC 10 H 0-5 /HPF Urine Squamous Epithelial Cells Mod <5 /hpf Urine Bacteria Few H None Seen /hpf Urine Glucose Normal Normal mg/dL Urine Opiates Screen Neg NEGATIVE Urine Fentanyl Screen Neg NEGATIVE Urine Barbiturates Screen Neg NEGATIVE Urine Phencyclidine Screen Neg NEGATIVE Urine Amphetamines Screen Neg NEGATIVE Urine Benzodiazepines Screen Neg NEGATIVE Urine Cocaine Screen Neg NEGATIVE Urine Cannabinoids Screen Neg NEGATIVE White Blood Count 9.5 4.4-10.8 10^3/uL Red Blood Count 4.28 4.0-5.20 10^6/uL Hemoglobin 13.4 12.2-16.2 g/dL Hematocrit 38.5 36.0-46.0 % Mean Corpuscular Volume 90.0 80.0-100.0 fL Mean Corpuscular Hemoglobin 31.3 28.0-32.0 pg Mean Corpuscular Hemoglobin Concent 34.7 32.0-36.0 g/dL Red Cell Distribution Width 14.2 11.8-14.3 % Platelet Count 171 140-450 10^3/uL Mean Platelet Volume 10.0 6.9-10.8 fL Neutrophils (%) (Auto) 57.6 37.0-80.0 % Lymphocytes (%) (Auto) 31.6 10.0-50.0 % Monocytes (%) (Auto) 8.7 0.0-12.0 % Eosinophils (%) (Auto) 1.4 0.0-7.0 % Basophils (%) (Auto) 0.7 0.0-2.0 % Neutrophils # (Auto) 5.5 1.6-8.6 10 ^3/uL Lymphocytes # (Auto) 3.0 0.4-5.4 10 ^3/uL Monocytes # (Auto) 0.8 0-1.3 10 ^3/uL Eosinophils # (Auto) 0.1 0-0.8 10 ^3/uL Basophils # (Auto) 0.1 0-0.2 10 ^3/uL Nucleated Red Blood Cells 0.1 % Prothrombin Time 10.2 9.3-11.8 sec Prothrombin Time INR 0.96 0.9-1.15 Activated Partial Thromboplast Time 28.9 24.5-34.5 SEC Sodium Level 138 136-145 mmol/L Potassium Level 3.8 3.5-5.1 mmol/L Chloride Level 105 98-107 mmol/L Carbon Dioxide Level 22 20-31 mmol/L Anion Gap 11 5-15 Blood Urea Nitrogen 12 9-23 mg/dL Creatinine 0.93 0.550-1.02 mg/dL Glomerular Filtration Rate Calc 81 >90 mL/min BUN/Creatinine Ratio 12.9 10.0-20.0 Serum Glucose 109 H 74-106 mg/dL Calcium Level 9.0 8.7-10.4 mg/dL Total Bilirubin 0.5 0.2-1.0 mg/dL Aspartate Amino Transferase (AST) 19 13-40 U/L Alanine Aminotransferase (ALT) 15 7-40 U/L Alkaline Phosphatase 83 46-116 U/L Total Protein 6.0 5.7-8.2 g/dL Albumin 3.7 3.2-4.8 g/dL Treponema pallidum Antibody Non-reactive Negative Hepatitis C Antibody Negative Negative Assessment Assessment IUP at 39w GDMA2 AMA Category I FHR Tracing Plan Plan Continue with current plan Plan discussed with: Patient Visit Coding OBGYN Date of Service: January 20, 2025 Billing Provider: YARON BURDICK CNM DATA SECURITY CONSULTANT Common Visit Codes: [id number] INP/OBS CARE(HIGH) DATA SECURITY CONSULTANT Procedure Codes: 69302-58- NON-STRESS TEST YARON BURDICK CNM January 20, 2025 04:40
[2025-01-20] MEDS: WITCH HAZEL-GLYCERIN PAD TOP PRN (05:05)
[2025-01-20] MEDS: DERMOPLAST 60ML BOTTLE TOP PRN (05:05)
[2025-01-20] MEDS: LACTATED RINGER'S 1,000 ML IV SCH (05:05)
[2025-01-20] MEDS: PHISODERM TOP SOLN 240ML BTL TOP PRN (05:05)
--- NOTE | 2025-01-20 07:04 | DVHPN2 ---
Chief Complaints Patient reports: No new complaints Nursing reports: No new complaints Objective Medications Current Medications Medications (Trade) Dose Ordered Sig/Laura Route PRN Reason Start Time Stop Time Status Last Admin Benzocaine (Dermoplast) 1 applic PRN PRN TOP PERINEAL AREA DISCOMFORT 01/19/25 21:15 01/20/25 05:05 Lactated Ringer's 1,000 ml @ 125 mls/hr Q8H IV 01/19/25 21:15 01/20/25 05:05 Lidocaine HCl (Xylocaine) 20 ml ONCE PRN IJ PERINEAL AREA DISCOMFORT 01/19/25 21:15 Misoprostol (Cytotec) 50 mcg Q4HPRN PRN PO CERVICAL RIPENING 01/19/25 21:15 01/20/25 04:45 Nalbuphine HCl (Nubain) 10 mg Q4HP PRN IV MODERATE PAIN (4-6 PAIN SCALE) 01/19/25 21:15 Penicillin G Potassium [id number] units/Dextrose 50 ml @ 100 mls/hr Q4H IV 01/20/25 01:30 Cancel Sodium Lauryl Sulfate (Phisoderm) 240 ml PRN PRN TOP PERINEAL AREA DISCOMFORT 01/19/25 21:15 01/20/25 05:05 Witch Rachel (Tucks) 1 pad PRN PRN TOP PERINEAL AREA DISCOMFORT 01/19/25 21:15 01/20/25 05:05 Others VE-UNCHANGED Studies Laboratory Tests 01/19/25 21:43 Test 01/19/25 21:43 Range/Units Serum Glucose 109 H 74-106 mg/dL Ass/Plan Assessment IOL FOR GDM Plan REC CYTOTEC SUPPORTIVE CARE Visit Coding OBGYN Date of Service: January 20, 2025 Billing Provider: USMAN EPSTEIN DO [employer] Common Visit Codes: 99162-XHN/OBS SAME DATE (LOW), 13017-IMC/OBS SAME DATE (HIGH) [employer] Procedure Codes: 88082-78- NON-STRESS TEST USMAN EPSTEIN DO January 20, 2025 07:04
--- NOTE | 2025-01-20 17:27 | DVHPN2 ---
Chief Complaints Patient reports: No new complaints Nursing reports: No new complaints Objective Medications Current Medications Medications (Trade) Dose Ordered Sig/Laura Route PRN Reason Start Time Stop Time Status Last Admin Benzocaine (Dermoplast) 1 applic PRN PRN TOP PERINEAL AREA DISCOMFORT 01/19/25 21:15 01/20/25 05:05 Lactated Ringer's 1,000 ml @ 125 mls/hr Q8H IV 01/19/25 21:15 01/20/25 05:05 Lidocaine HCl (Xylocaine) 20 ml ONCE PRN IJ PERINEAL AREA DISCOMFORT 01/19/25 21:15 Misoprostol (Cytotec) 50 mcg Q4HPRN PRN PO CERVICAL RIPENING 01/19/25 21:15 01/20/25 12:41 Nalbuphine HCl (Nubain) 10 mg Q4HP PRN IV MODERATE PAIN (4-6 PAIN SCALE) 01/19/25 21:15 Penicillin G Potassium [id number] units/Dextrose 50 ml @ 100 mls/hr Q4H IV 01/20/25 01:30 Cancel Sodium Lauryl Sulfate (Phisoderm) 240 ml PRN PRN TOP PERINEAL AREA DISCOMFORT 01/19/25 21:15 01/20/25 05:05 Witch Rachel (Tucks) 1 pad PRN PRN TOP PERINEAL AREA DISCOMFORT 01/19/25 21:15 01/20/25 05:05 Others VAAG EXAM -1CM/50/-2 Studies Laboratory Tests 01/19/25 21:43 Test 01/19/25 21:43 Range/Units Serum Glucose 109 H 74-106 mg/dL Ass/Plan Assessment IOL FOR GDM Plan WILL GET KEILA MARRUFO PT IS EATING I ADVISED AGAINST EATING GOT UPSET AND THREATNED TO TAKE HER HOME WHICH I ADVISED AGAINST Visit Coding OBGYN Date of Service: January 20, 2025 Billing Provider: USMAN EPSTEIN DO LEASE ADMINISTRATION ANALYST Common Visit Codes: 80358-NSH/OBS SAME DATE (HIGH) LEASE ADMINISTRATION ANALYST Procedure Codes: 25902-24- NON-STRESS TEST USMAN EPSTEIN DO January 20, 2025 17:27
--- NOTE | 2025-01-20 18:53 | DVHPN2 ---
OB Labor Progress Note Date and Time Seen Date Seen: January 20, 2025 Time Seen: 18:18 Subjective Patient reports: No new complaints Objective Vital Signs VSS Monitoring Method Monitoring Method: External Heart Rate Heart Rate Baseline: 135 Heart Rate Variability: Moderate Presence of FHR Accelerations: Yes Presence of FHR Decelerations: No Changes in Trends of Patterns: No Are all 5 Components of the FH: Yes Contractions Contractions Frequency: Other (4-5minutes) Duration of Contraction: 60 Contractions Intensity: Mild Contractions Resting Tone: Relaxed Membranes Membranes: Intact Vaginal Exam Vag Exam Deferred: No Vaginal Exam Dilation: 1 Vaginal Exam Effacement: 0 Vaginal Exam Station: -3 Vaginal Exam Presentation: VTX Vaginal Exam Show: None Medications Medications - Pitocin: No Medication - Epidural: No Medication - Other Misoprostol #4 dose given at 1241 Lab Results Lab Results Vital Signs Date Time Temp Pulse Resp B/P (MAP) Pulse Ox O2 Delivery O2 Flow Rate FiO2 01/21/25 17:44 105/58 Current Medications Medications (Trade) Dose Ordered Sig/Laura Start Time Stop Time Status Last Admin Dose Admin Lactated Ringer's 1,000 ml @ 125 mls/hr Q8H 01/19/25 21:15 01/21/25 17:49 125 MLS/HR Nalbuphine HCl (Nubain) 10 mg Q4HP PRN 01/19/25 21:15 Witch Rachle (Tucks) 1 pad PRN PRN 01/19/25 21:15 01/20/25 05:05 1 PAD Sodium Lauryl Sulfate (Phisoderm) 240 ml PRN PRN 01/19/25 21:15 01/20/25 05:05 240 ML Benzocaine (Dermoplast) 1 applic PRN PRN 01/19/25 21:15 01/20/25 05:05 1 APPLIC Misoprostol (Cytotec) 50 mcg Q4HPRN PRN 01/19/25 21:15 01/20/25 12:41 50 MCG Lidocaine HCl (Xylocaine) 20 ml ONCE PRN 01/19/25 21:15 Oxytocin 1,000 ml @ 6 ml/hr Q24H 01/20/25 23:30 01/20/25 23:36 DC Terbutaline Sulfate (Brethine Inj) 0.25 mg ONCE PRN 01/20/25 23:30 Oxytocin 1,000 ml @ 6 ml/hr Q24H 01/20/25 23:45 01/21/25 01:56 6 ML/HR Oxytocin 500 ml @ 999 mls/hr Q31M ONCE 01/21/25 04:00 01/21/25 04:30 DC Oxytocin 500 ml @ 125 mls/hr Q4H ONCE 01/21/25 04:00 01/21/25 07:59 DC Dextrose/Lactated Ringer's 1,000 ml @ 125 mls/hr Q8H 01/21/25 06:15 01/21/25 06:32 125 MLS/HR Naloxone HCl (Narcan) 0.2 mg PRN ONCE 01/21/25 07:00 01/21/25 07:27 DC Ephedrine Sulfate (ePHEDrine SULFATE) 10 mg PRN ONCE 01/21/25 07:00 01/21/25 07:27 DC 01/21/25 17:44 10 MG Fentanyl Citrate 100 mcg ONCE ONCE 01/21/25 07:00 01/21/25 07:27 DC 01/21/25 17:44 100 MCG Lidocaine HCl (Xylocaine-Pf 2% Injection) 10 ml ONCE ONCE 01/21/25 07:00 01/21/25 07:27 DC Sodium Chloride 500 ml @ 500 mls/hr Q1H PRN 01/21/25 08:45 Naloxone HCl (Narcan) 0.2 mg PRN ONCE 01/21/25 08:45 01/21/25 08:51 DC Ephedrine Sulfate (ePHEDrine SULFATE) 10 mg PRN ONCE 01/21/25 08:45 01/21/25 08:51 DC Lactated Ringer's 500 ml @ 500 mls/hr Q1H ONCE 01/21/25 08:45 01/21/25 09:44 DC Fentanyl/ Ropivacaine 200 ml @ 12 mls/hr UD 01/21/25 08:45 01/23/25 08:44 Acetaminophen (Tylenol Tablet) 650 mg Q4HP PRN 01/21/25 19:15 01/21/25 19:21 650 MG Laboratory Tests Test 01/21/25 17:48 01/19/25 22:50 01/19/25 21:43 Range/Units POC Glucose 78 70-106 mg/dl Urine Color Colorless Yellow Urine Clarity Turbid H Clear Urine pH 6.0 5.0-9.0 Urine Specific [place] 1.012 1.001-1.035 Urine Protein Negative Negative Urine Ketones 1+ H Negative Urine Blood Negative Negative /uL Urine Nitrite Negative Negative Urine Bilirubin Negative Negative Urine Urobilinogen Normal Negative mg/dL Urine Leukocyte Esterase 3+ Negative /uL Urine RBC 1 0 - 4 /hpf Urine Microscopic WBC 10 H 0-5 /HPF Urine Squamous Epithelial Cells Mod <5 /hpf Urine Bacteria Few H None Seen /hpf Urine Glucose Normal Normal mg/dL Urine Opiates Screen Neg NEGATIVE Urine Fentanyl Screen Neg NEGATIVE Urine Barbiturates Screen Neg NEGATIVE Urine Phencyclidine Screen Neg NEGATIVE Urine Amphetamines Screen Neg NEGATIVE Urine Benzodiazepines Screen Neg NEGATIVE Urine Cocaine Screen Neg NEGATIVE Urine Cannabinoids Screen Neg NEGATIVE White Blood Count 9.5 4.4-10.8 10^3/uL Red Blood Count 4.28 4.0-5.20 10^6/uL Hemoglobin 13.4 12.2-16.2 g/dL Hematocrit 38.5 36.0-46.0 % Mean Corpuscular Volume 90.0 80.0-100.0 fL Mean Corpuscular Hemoglobin 31.3 28.0-32.0 pg Mean Corpuscular Hemoglobin Concent 34.7 32.0-36.0 g/dL Red Cell Distribution Width 14.2 11.8-14.3 % Platelet Count 171 140-450 10^3/uL Mean Platelet Volume 10.0 6.9-10.8 fL Neutrophils (%) (Auto) 57.6 37.0-80.0 % Lymphocytes (%) (Auto) 31.6 10.0-50.0 % Monocytes (%) (Auto) 8.7 0.0-12.0 % Eosinophils (%) (Auto) 1.4 0.0-7.0 % Basophils (%) (Auto) 0.7 0.0-2.0 % Neutrophils # (Auto) 5.5 1.6-8.6 10 ^3/uL Lymphocytes # (Auto) 3.0 0.4-5.4 10 ^3/uL Monocytes # (Auto) 0.8 0-1.3 10 ^3/uL Eosinophils # (Auto) 0.1 0-0.8 10 ^3/uL Basophils # (Auto) 0.1 0-0.2 10 ^3/uL Nucleated Red Blood Cells 0.1 % Prothrombin Time 10.2 9.3-11.8 sec Prothrombin Time INR 0.96 0.9-1.15 Activated Partial Thromboplast Time 28.9 24.5-34.5 SEC Sodium Level 138 136-145 mmol/L Potassium Level 3.8 3.5-5.1 mmol/L Chloride Level 105 98-107 mmol/L Carbon Dioxide Level 22 20-31 mmol/L Anion Gap 11 5-15 Blood Urea Nitrogen 12 9-23 mg/dL Creatinine 0.93 0.550-1.02 mg/dL Glomerular Filtration Rate Calc 81 >90 mL/min BUN/Creatinine Ratio 12.9 10.0-20.0 Serum Glucose 109 H 74-106 mg/dL Calcium Level 9.0 8.7-10.4 mg/dL Total Bilirubin 0.5 0.2-1.0 mg/dL Aspartate Amino Transferase (AST) 19 13-40 U/L Alanine Aminotransferase (ALT) 15 7-40 U/L Alkaline Phosphatase 83 46-116 U/L Total Protein 6.0 5.7-8.2 g/dL Albumin 3.7 3.2-4.8 g/dL Treponema pallidum Antibody Non-reactive Negative Hepatitis C Antibody Negative Negative Assessment Assessment IUP @39w 0d AMA GDMA2 IOL Category I FHR tracing Plan Plan Cervical ripening ([place]) catheter inserted, balloon inflated with 80mL of sterile water Continue EFM and Misoprostol per policy Encourage ambulation and frequent position changes to facilitate labor Intrauterine resuscitation PRN Labor analgesia PRN Supportive care Anticipate Plan discussed with: Patient, Spouse Visit Coding OBGYN Date of Service: January 20, 2025 Billing Provider: YARON BURDICK CNM STRIP PICKER Common Visit Codes: [id number] INP/OBS CARE(HIGH) STRIP PICKER Procedure Codes: 96765-83- NON-STRESS TEST YARON BURDICK CNM January 20, 2025 18:53
[2025-01-20] MEDS ORDERED: TERBUTALINE SULFATE 1 MG/ML 1ML VIAL SC PRN (23:30)
[2025-01-20] MEDS ORDERED: LACT. RINGERS/OXYTOCIN 20UNITS 1,000 ML IV SCH (23:30)
[2025-01-21] MEDS: LACT. RINGERS/OXYTOCIN 20UNITS 1,000 ML IV SCH (01:56)
[2025-01-21] MEDS: D5W/LACTATED RINGERS 1,000 ML IV SCH (06:32)
--- NOTE | 2025-01-21 06:41 | DVHPN2 ---
OB Labor Progress Note Date and Time Seen Date Seen: January 20, 2025 Time Seen: 23:30 Subjective Patient reports: No new complaints Objective Vital Signs VSS Monitoring Method Monitoring Method: External Heart Rate Heart Rate Variability: Moderate Presence of FHR Accelerations: Yes Presence of FHR Decelerations: No Changes in Trends of Patterns: No Are all 5 Components of the FH: Yes Contractions Contractions Intensity: Mild Contractions Resting Tone: Relaxed Membranes Membranes: Intact Vaginal Exam Vag Exam Deferred: No Vaginal Exam Dilation: 4 Vaginal Exam Effacement: 60 Vaginal Exam Station: -3 Vaginal Exam Presentation: VTX (VE by RN) Medications Medication - Epidural: No Medication - Other Misoprostol Lab Results Lab Results Vital Signs Date Time Temp Pulse Resp B/P (MAP) Pulse Ox O2 Delivery O2 Flow Rate FiO2 01/21/25 17:44 105/58 Current Medications Medications (Trade) Dose Ordered Sig/Laura Start Time Stop Time Status Last Admin Dose Admin Lactated Ringer's 1,000 ml @ 125 mls/hr Q8H 01/19/25 21:15 01/21/25 17:49 125 MLS/HR Nalbuphine HCl (Nubain) 10 mg Q4HP PRN 01/19/25 21:15 Witch Rachel (Tucks) 1 pad PRN PRN 01/19/25 21:15 01/20/25 05:05 1 PAD Sodium Lauryl Sulfate (Phisoderm) 240 ml PRN PRN 01/19/25 21:15 01/20/25 05:05 240 ML Benzocaine (Dermoplast) 1 applic PRN PRN 01/19/25 21:15 01/20/25 05:05 1 APPLIC Misoprostol (Cytotec) 50 mcg Q4HPRN PRN 01/19/25 21:15 01/20/25 12:41 50 MCG Lidocaine HCl (Xylocaine) 20 ml ONCE PRN 01/19/25 21:15 Oxytocin 1,000 ml @ 6 ml/hr Q24H 01/20/25 23:30 01/20/25 23:36 DC Terbutaline Sulfate (Brethine Inj) 0.25 mg ONCE PRN 01/20/25 23:30 Oxytocin 1,000 ml @ 6 ml/hr Q24H 01/20/25 23:45 01/21/25 01:56 6 ML/HR Oxytocin 500 ml @ 999 mls/hr Q31M ONCE 01/21/25 04:00 01/21/25 04:30 DC Oxytocin 500 ml @ 125 mls/hr Q4H ONCE 01/21/25 04:00 01/21/25 07:59 DC Dextrose/Lactated Ringer's 1,000 ml @ 125 mls/hr Q8H 01/21/25 06:15 01/21/25 06:32 125 MLS/HR Naloxone HCl (Narcan) 0.2 mg PRN ONCE 01/21/25 07:00 01/21/25 07:27 DC Ephedrine Sulfate (ePHEDrine SULFATE) 10 mg PRN ONCE 01/21/25 07:00 01/21/25 07:27 DC 01/21/25 17:44 10 MG Fentanyl Citrate 100 mcg ONCE ONCE 01/21/25 07:00 01/21/25 07:27 DC 01/21/25 17:44 100 MCG Lidocaine HCl (Xylocaine-Pf 2% Injection) 10 ml ONCE ONCE 01/21/25 07:00 01/21/25 07:27 DC Sodium Chloride 500 ml @ 500 mls/hr Q1H PRN 01/21/25 08:45 Naloxone HCl (Narcan) 0.2 mg PRN ONCE 01/21/25 08:45 01/21/25 08:51 DC Ephedrine Sulfate (ePHEDrine SULFATE) 10 mg PRN ONCE 01/21/25 08:45 01/21/25 08:51 DC Lactated Ringer's 500 ml @ 500 mls/hr Q1H ONCE 01/21/25 08:45 01/21/25 09:44 DC Fentanyl/ Ropivacaine 200 ml @ 12 mls/hr UD 01/21/25 08:45 01/23/25 08:44 Acetaminophen (Tylenol Tablet) 650 mg Q4HP PRN 01/21/25 19:15 01/21/25 19:21 650 MG Laboratory Tests Test 01/21/25 17:48 01/19/25 22:50 01/19/25 21:43 Range/Units POC Glucose 78 70-106 mg/dl Urine Color Colorless Yellow Urine Clarity Turbid H Clear Urine pH 6.0 5.0-9.0 Urine Specific [place] 1.012 1.001-1.035 Urine Protein Negative Negative Urine Ketones 1+ H Negative Urine Blood Negative Negative /uL Urine Nitrite Negative Negative Urine Bilirubin Negative Negative Urine Urobilinogen Normal Negative mg/dL Urine Leukocyte Esterase 3+ Negative /uL Urine RBC 1 0 - 4 /hpf Urine Microscopic WBC 10 H 0-5 /HPF Urine Squamous Epithelial Cells Mod <5 /hpf Urine Bacteria Few H None Seen /hpf Urine Glucose Normal Normal mg/dL Urine Opiates Screen Neg NEGATIVE Urine Fentanyl Screen Neg NEGATIVE Urine Barbiturates Screen Neg NEGATIVE Urine Phencyclidine Screen Neg NEGATIVE Urine Amphetamines Screen Neg NEGATIVE Urine Benzodiazepines Screen Neg NEGATIVE Urine Cocaine Screen Neg NEGATIVE Urine Cannabinoids Screen Neg NEGATIVE White Blood Count 9.5 4.4-10.8 10^3/uL Red Blood Count 4.28 4.0-5.20 10^6/uL Hemoglobin 13.4 12.2-16.2 g/dL Hematocrit 38.5 36.0-46.0 % Mean Corpuscular Volume 90.0 80.0-100.0 fL Mean Corpuscular Hemoglobin 31.3 28.0-32.0 pg Mean Corpuscular Hemoglobin Concent 34.7 32.0-36.0 g/dL Red Cell Distribution Width 14.2 11.8-14.3 % Platelet Count 171 140-450 10^3/uL Mean Platelet Volume 10.0 6.9-10.8 fL Neutrophils (%) (Auto) 57.6 37.0-80.0 % Lymphocytes (%) (Auto) 31.6 10.0-50.0 % Monocytes (%) (Auto) 8.7 0.0-12.0 % Eosinophils (%) (Auto) 1.4 0.0-7.0 % Basophils (%) (Auto) 0.7 0.0-2.0 % Neutrophils # (Auto) 5.5 1.6-8.6 10 ^3/uL Lymphocytes # (Auto) 3.0 0.4-5.4 10 ^3/uL Monocytes # (Auto) 0.8 0-1.3 10 ^3/uL Eosinophils # (Auto) 0.1 0-0.8 10 ^3/uL Basophils # (Auto) 0.1 0-0.2 10 ^3/uL Nucleated Red Blood Cells 0.1 % Prothrombin Time 10.2 9.3-11.8 sec Prothrombin Time INR 0.96 0.9-1.15 Activated Partial Thromboplast Time 28.9 24.5-34.5 SEC Sodium Level 138 136-145 mmol/L Potassium Level 3.8 3.5-5.1 mmol/L Chloride Level 105 98-107 mmol/L Carbon Dioxide Level 22 20-31 mmol/L Anion Gap 11 5-15 Blood Urea Nitrogen 12 9-23 mg/dL Creatinine 0.93 0.550-1.02 mg/dL Glomerular Filtration Rate Calc 81 >90 mL/min BUN/Creatinine Ratio 12.9 10.0-20.0 Serum Glucose 109 H 74-106 mg/dL Calcium Level 9.0 8.7-10.4 mg/dL Total Bilirubin 0.5 0.2-1.0 mg/dL Aspartate Amino Transferase (AST) 19 13-40 U/L Alanine Aminotransferase (ALT) 15 7-40 U/L Alkaline Phosphatase 83 46-116 U/L Total Protein 6.0 5.7-8.2 g/dL Albumin 3.7 3.2-4.8 g/dL Treponema pallidum Antibody Non-reactive Negative Hepatitis C Antibody Negative Negative Assessment Assessment IUP at 39w 0d GDMA2 AMA IOL Category 1 FHR Tracing Plan Plan Continue current plan Start Pitocin per protocol Intrauterine resuscitation PRN Labor analgesia PRN Supportive care Anticipate Plan discussed with: Patient Visit Coding OBGYN Date of Service: January 20, 2025 Billing Provider: YARON BURDICK CNM DIRECTOR PHARMACOVIGILANCE Common Visit Codes: [id number] INP/OBS CARE(HIGH) DIRECTOR PHARMACOVIGILANCE Procedure Codes: 69465-86- NON-STRESS TEST YARON BURDICK CNM January 21, 2025 06:41
--- NOTE | 2025-01-21 06:48 | DVHPN2 ---
OB Labor Progress Note Date and Time Seen Date Seen: January 21, 2025 Time Seen: 05:00 Subjective Patient reports: No new complaints Objective Vital Signs VSS Monitoring Method Monitoring Method: External Heart Rate Heart Rate Baseline: 130 Heart Rate Variability: Moderate Presence of FHR Accelerations: No Presence of FHR Decelerations: No Contractions Contractions Frequency: Other (2-3) Duration of Contraction: 70 Contractions Intensity: Moderate Contractions Resting Tone: Relaxed Membranes Membranes: Intact Vaginal Exam Vag Exam Deferred: No Vaginal Exam Dilation: 4 Vaginal Exam Effacement: 60 Vaginal Exam Station: -2 Vaginal Exam Presentation: VTX Vaginal Exam Show: None Medications Medications - Pitocin: Yes Medication - Epidural: No Lab Results Lab Results Vital Signs Date Time Temp Pulse Resp B/P (MAP) Pulse Ox O2 Delivery O2 Flow Rate FiO2 01/21/25 17:44 105/58 Current Medications Medications (Trade) Dose Ordered Sig/Laura Start Time Stop Time Status Last Admin Dose Admin Lactated Ringer's 1,000 ml @ 125 mls/hr Q8H 01/19/25 21:15 01/21/25 17:49 125 MLS/HR Nalbuphine HCl (Nubain) 10 mg Q4HP PRN 01/19/25 21:15 Witch Rachel (Tucks) 1 pad PRN PRN 01/19/25 21:15 01/20/25 05:05 1 PAD Sodium Lauryl Sulfate (Phisoderm) 240 ml PRN PRN 01/19/25 21:15 01/20/25 05:05 240 ML Benzocaine (Dermoplast) 1 applic PRN PRN 01/19/25 21:15 01/20/25 05:05 1 APPLIC Misoprostol (Cytotec) 50 mcg Q4HPRN PRN 01/19/25 21:15 01/20/25 12:41 50 MCG Lidocaine HCl (Xylocaine) 20 ml ONCE PRN 01/19/25 21:15 Oxytocin 1,000 ml @ 6 ml/hr Q24H 01/20/25 23:30 01/20/25 23:36 DC Terbutaline Sulfate (Brethine Inj) 0.25 mg ONCE PRN 01/20/25 23:30 Oxytocin 1,000 ml @ 6 ml/hr Q24H 01/20/25 23:45 01/21/25 01:56 6 ML/HR Oxytocin 500 ml @ 999 mls/hr Q31M ONCE 01/21/25 04:00 01/21/25 04:30 DC Oxytocin 500 ml @ 125 mls/hr Q4H ONCE 01/21/25 04:00 01/21/25 07:59 DC Dextrose/Lactated Ringer's 1,000 ml @ 125 mls/hr Q8H 01/21/25 06:15 01/21/25 06:32 125 MLS/HR Naloxone HCl (Narcan) 0.2 mg PRN ONCE 01/21/25 07:00 01/21/25 07:27 DC Ephedrine Sulfate (ePHEDrine SULFATE) 10 mg PRN ONCE 01/21/25 07:00 01/21/25 07:27 DC 01/21/25 17:44 10 MG Fentanyl Citrate 100 mcg ONCE ONCE 01/21/25 07:00 01/21/25 07:27 DC 01/21/25 17:44 100 MCG Lidocaine HCl (Xylocaine-Pf 2% Injection) 10 ml ONCE ONCE 01/21/25 07:00 01/21/25 07:27 DC Sodium Chloride 500 ml @ 500 mls/hr Q1H PRN 01/21/25 08:45 Naloxone HCl (Narcan) 0.2 mg PRN ONCE 01/21/25 08:45 01/21/25 08:51 DC Ephedrine Sulfate (ePHEDrine SULFATE) 10 mg PRN ONCE 01/21/25 08:45 01/21/25 08:51 DC Lactated Ringer's 500 ml @ 500 mls/hr Q1H ONCE 01/21/25 08:45 01/21/25 09:44 DC Fentanyl/ Ropivacaine 200 ml @ 12 mls/hr UD 01/21/25 08:45 01/23/25 08:44 Acetaminophen (Tylenol Tablet) 650 mg Q4HP PRN 01/21/25 19:15 01/21/25 19:21 650 MG Laboratory Tests Test 01/21/25 17:48 01/19/25 22:50 01/19/25 21:43 Range/Units POC Glucose 78 70-106 mg/dl Urine Color Colorless Yellow Urine Clarity Turbid H Clear Urine pH 6.0 5.0-9.0 Urine Specific [place] 1.012 1.001-1.035 Urine Protein Negative Negative Urine Ketones 1+ H Negative Urine Blood Negative Negative /uL Urine Nitrite Negative Negative Urine Bilirubin Negative Negative Urine Urobilinogen Normal Negative mg/dL Urine Leukocyte Esterase 3+ Negative /uL Urine RBC 1 0 - 4 /hpf Urine Microscopic WBC 10 H 0-5 /HPF Urine Squamous Epithelial Cells Mod <5 /hpf Urine Bacteria Few H None Seen /hpf Urine Glucose Normal Normal mg/dL Urine Opiates Screen Neg NEGATIVE Urine Fentanyl Screen Neg NEGATIVE Urine Barbiturates Screen Neg NEGATIVE Urine Phencyclidine Screen Neg NEGATIVE Urine Amphetamines Screen Neg NEGATIVE Urine Benzodiazepines Screen Neg NEGATIVE Urine Cocaine Screen Neg NEGATIVE Urine Cannabinoids Screen Neg NEGATIVE White Blood Count 9.5 4.4-10.8 10^3/uL Red Blood Count 4.28 4.0-5.20 10^6/uL Hemoglobin 13.4 12.2-16.2 g/dL Hematocrit 38.5 36.0-46.0 % Mean Corpuscular Volume 90.0 80.0-100.0 fL Mean Corpuscular Hemoglobin 31.3 28.0-32.0 pg Mean Corpuscular Hemoglobin Concent 34.7 32.0-36.0 g/dL Red Cell Distribution Width 14.2 11.8-14.3 % Platelet Count 171 140-450 10^3/uL Mean Platelet Volume 10.0 6.9-10.8 fL Neutrophils (%) (Auto) 57.6 37.0-80.0 % Lymphocytes (%) (Auto) 31.6 10.0-50.0 % Monocytes (%) (Auto) 8.7 0.0-12.0 % Eosinophils (%) (Auto) 1.4 0.0-7.0 % Basophils (%) (Auto) 0.7 0.0-2.0 % Neutrophils # (Auto) 5.5 1.6-8.6 10 ^3/uL Lymphocytes # (Auto) 3.0 0.4-5.4 10 ^3/uL Monocytes # (Auto) 0.8 0-1.3 10 ^3/uL Eosinophils # (Auto) 0.1 0-0.8 10 ^3/uL Basophils # (Auto) 0.1 0-0.2 10 ^3/uL Nucleated Red Blood Cells 0.1 % Prothrombin Time 10.2 9.3-11.8 sec Prothrombin Time INR 0.96 0.9-1.15 Activated Partial Thromboplast Time 28.9 24.5-34.5 SEC Sodium Level 138 136-145 mmol/L Potassium Level 3.8 3.5-5.1 mmol/L Chloride Level 105 98-107 mmol/L Carbon Dioxide Level 22 20-31 mmol/L Anion Gap 11 5-15 Blood Urea Nitrogen 12 9-23 mg/dL Creatinine 0.93 0.550-1.02 mg/dL Glomerular Filtration Rate Calc 81 >90 mL/min BUN/Creatinine Ratio 12.9 10.0-20.0 Serum Glucose 109 H 74-106 mg/dL Calcium Level 9.0 8.7-10.4 mg/dL Total Bilirubin 0.5 0.2-1.0 mg/dL Aspartate Amino Transferase (AST) 19 13-40 U/L Alanine Aminotransferase (ALT) 15 7-40 U/L Alkaline Phosphatase 83 46-116 U/L Total Protein 6.0 5.7-8.2 g/dL Albumin 3.7 3.2-4.8 g/dL Treponema pallidum Antibody Non-reactive Negative Hepatitis C Antibody Negative Negative Assessment Assessment IUP at 38w 1d GDMA2 AMA Category 1 FHR Tracing Plan Plan Continue current plan Intrauterine resuscitation PRN Labor analgesia PRN Frequent position change to facilitate labor Supportive care Anticipate Plan discussed with: Patient Visit Coding OBGYN Date of Service: January 21, 2025 Billing Provider: YARON BURDICK CNM BOARD DESIGN ENGINEER Common Visit Codes: [id number] INP/OBS CARE(HIGH) BOARD DESIGN ENGINEER Procedure Codes: 15229-98- NON-STRESS TEST YARON BURDICK CNM January 21, 2025 06:48
[2025-01-21] MEDS: NALOXONE HCL 0.4 MG/ML VIAL IV ONE ×2 (07:00→08:45)
--- NOTE | 2025-01-21 07:59 | DVHPN2 ---
Chief Complaints Patient reports: No new complaints Nursing reports: No new complaints Objective Medications Current Medications Medications (Trade) Dose Ordered Sig/Laura Route PRN Reason Start Time Stop Time Status Last Admin Dextrose/Lactated Ringer's 1,000 ml @ 125 mls/hr Q8H IV 01/21/25 06:15 01/21/25 06:32 Oxytocin 1,000 ml @ 6 ml/hr Q24H IV 01/20/25 23:45 01/21/25 01:56 Terbutaline Sulfate (Brethine Inj) 0.25 mg ONCE PRN SC Uterine tachysystole 01/20/25 23:30 Others VE-4CM/70/-2 Studies Laboratory Tests 01/19/25 21:43 Test 01/19/25 21:43 Range/Units Serum Glucose 109 H 74-106 mg/dL Ass/Plan Assessment IOL FOR GDM Plan GETTING AN EPIDURAL CONT WITH PITOCIN Visit Coding OBGYN Date of Service: January 21, 2025 Billing Provider: USMAN EPSTEIN DO CORPORATE CONCIERGE Common Visit Codes: [id number] INP/OBS CARE(HIGH) [employer]PORATE CONCIERGE Procedure Codes: 22129-20- NON-STRESS TEST USMAN EPSTEIN DO January 21, 2025 07:59
--- NOTE | 2025-01-21 08:36 | EPIDURAL ---
Anesthesia Procedural Note - Epidural Date: January 21, 2025 Informed consent obtained?: Yes Medication Administered: Fentanyl 100 mcg 2% Lidocaine Administered: 5 Medication Administered: ePHEDrine 5 mg IV Sterile prept drape: Yes Spinal level of insertion: L2-L3 Test dose of lidocaine & Epine: Negative Infusion started: Yes Start time: 07:45 End time: 08:30 REZA ARIAS MD January 21, 2025 08:36
[2025-01-21] MEDS ORDERED: fentaNYL 400mCg/200ml W ROPIVA 200 ML EPI SCH (08:45)
[2025-01-21] MEDS: ePHEDrine SULFATE 50 MG/ML AMP IV ONE ×2 (08:45→17:44)
[2025-01-21] MEDS ORDERED: PHENYLEPHRINE HCL 10 MG/ML VL IV ONE (12:25)
[2025-01-21] MEDS: fentaNYL CITRATE 100 MCG/2 ML VL IV ONE (17:44)
[2025-01-21] MEDS: ROPIVACAINE HCL 200 ML ONE (17:47)
[2025-01-21] MEDS: ACETAMINOPHEN 325 MG TAB PO PRN (19:21)
[2025-01-21] MEDS: LIDOCAINE HCL 2 %PF INJ 10ML AMP IJ ONE ×2 (19:42→20:30)
[2025-01-21] MEDS: LACTATED RINGER'S 1,000 ML IV ONE (19:45)
[2025-01-21] MEDS ORDERED: MIDAZOLAM HCL 2MG/2ML 2ml VIAL (1mg/ml) ONE (19:48)
[2025-01-21] MEDS ORDERED: fentaNYL CITRATE 100 MCG/2 ML VL ONE (19:48)
[2025-01-21] MEDS ORDERED: MORPHINE SULF PF 5 MG/10 ML VIAL ONE (19:48)
[2025-01-21] MEDS: LACTATED RINGER'S 500 ML IV ONE (20:00)
[2025-01-21] MEDS ORDERED: DOCU-94 PO (20:10)
[2025-01-21] MEDS ORDERED: IBUP-1456 PO (20:10)
[2025-01-21] MEDS ORDERED: HYDR-4072 PO (20:10)
[2025-01-21] MEDS ORDERED: ONDANSETRON HCL 4 MG/2 ML VIAL IV PRN (20:15)
[2025-01-21] MEDS: LACT. RINGERS/OXYTOCIN 20UNITS 1,000 ML IV ONE (20:15)
[2025-01-21] MEDS: GUM (CHEWING) 1 GUM CHEW CHEW ONE (20:15)
[2025-01-21] MEDS: ceFAZolin 2 GM/D5W50ml 50 ML IV ONE (20:20)
[2025-01-21] MEDS: LACT. RINGERS/OXYTOCIN 20UNITS 500 ML IV ONE ×2 (20:30)
--- NOTE | 2025-01-21 20:55 | DVHPN2 ---
OB Labor Progress Note Date and Time Seen Date Seen: January 21, 2025 Time Seen: 19:20 Subjective Patient reports: No new complaints Monitoring Method Monitoring Method: External Heart Rate Heart Rate Baseline: 140 Heart Rate Variability: Moderate Presence of FHR Accelerations: Yes Changes in Trends of Patterns: Yes Contractions Contractions Frequency: Other (Q2-3min) Duration of Contraction: 90 Contractions Intensity: Moderate Contractions Resting Tone: Relaxed Membranes Membranes: Ruptured Amniotic Fluid Color: Clear Vaginal Exam Vag Exam Deferred: No Vaginal Exam Dilation: 8 Vaginal Exam Effacement: 90 Vaginal Exam Station: -1 Vaginal Exam Presentation: VTX Vaginal Exam Show: Small (Left side of Cervix swollen including anterior lip. Vulva also swollen ) Medications Medications - Pitocin: Yes Lab Results Lab Results Vital Signs Date Time Temp Pulse Resp B/P (MAP) Pulse Ox O2 Delivery O2 Flow Rate FiO2 01/21/25 17:44 105/58 Current Medications Medications (Trade) Dose Ordered Sig/Laura Start Time Stop Time Status Last Admin Dose Admin Lactated Ringer's 1,000 ml @ 125 mls/hr Q8H 01/19/25 21:15 01/21/25 17:49 125 MLS/HR Nalbuphine HCl (Nubain) 10 mg Q4HP PRN 01/19/25 21:15 Witch Rachel (Tucks) 1 pad PRN PRN 01/19/25 21:15 01/20/25 05:05 1 PAD Sodium Lauryl Sulfate (Phisoderm) 240 ml PRN PRN 01/19/25 21:15 01/20/25 05:05 240 ML Benzocaine (Dermoplast) 1 applic PRN PRN 01/19/25 21:15 01/20/25 05:05 1 APPLIC Misoprostol (Cytotec) 50 mcg Q4HPRN PRN 01/19/25 21:15 01/20/25 12:41 50 MCG Lidocaine HCl (Xylocaine) 20 ml ONCE PRN 01/19/25 21:15 Oxytocin 1,000 ml @ 6 ml/hr Q24H 01/20/25 23:30 01/20/25 23:36 DC Terbutaline Sulfate (Brethine Inj) 0.25 mg ONCE PRN 01/20/25 23:30 Oxytocin 1,000 ml @ 6 ml/hr Q24H 01/20/25 23:45 01/21/25 01:56 6 ML/HR Oxytocin 500 ml @ 999 mls/hr Q31M ONCE 01/21/25 04:00 01/21/25 04:30 DC Oxytocin 500 ml @ 125 mls/hr Q4H ONCE 01/21/25 04:00 01/21/25 07:59 DC Dextrose/Lactated Ringer's 1,000 ml @ 125 mls/hr Q8H 01/21/25 06:15 01/21/25 06:32 125 MLS/HR Naloxone HCl (Narcan) 0.2 mg PRN ONCE 01/21/25 07:00 01/21/25 07:27 DC Ephedrine Sulfate (ePHEDrine SULFATE) 10 mg PRN ONCE 01/21/25 07:00 01/21/25 07:27 DC 01/21/25 17:44 10 MG Fentanyl Citrate 100 mcg ONCE ONCE 01/21/25 07:00 01/21/25 07:27 DC 01/21/25 17:44 100 MCG Lidocaine HCl (Xylocaine-Pf 2% Injection) 10 ml ONCE ONCE 01/21/25 07:00 01/21/25 07:27 DC Sodium Chloride 500 ml @ 500 mls/hr Q1H PRN 01/21/25 08:45 Naloxone HCl (Narcan) 0.2 mg PRN ONCE 01/21/25 08:45 01/21/25 08:51 DC Ephedrine Sulfate (ePHEDrine SULFATE) 10 mg PRN ONCE 01/21/25 08:45 01/21/25 08:51 DC Lactated Ringer's 500 ml @ 500 mls/hr Q1H ONCE 01/21/25 08:45 01/21/25 09:44 DC Fentanyl/ Ropivacaine 200 ml @ 12 mls/hr UD 01/21/25 08:45 01/23/25 08:44 Acetaminophen (Tylenol Tablet) 650 mg Q4HP PRN 01/21/25 19:15 01/21/25 19:21 650 MG Laboratory Tests Test 01/21/25 17:48 01/19/25 22:50 01/19/25 21:43 Range/Units POC Glucose 78 70-106 mg/dl Urine Color Colorless Yellow Urine Clarity Turbid H Clear Urine pH 6.0 5.0-9.0 Urine Specific [place] 1.012 1.001-1.035 Urine Protein Negative Negative Urine Ketones 1+ H Negative Urine Blood Negative Negative /uL Urine Nitrite Negative Negative Urine Bilirubin Negative Negative Urine Urobilinogen Normal Negative mg/dL Urine Leukocyte Esterase 3+ Negative /uL Urine RBC 1 0 - 4 /hpf Urine Microscopic WBC 10 H 0-5 /HPF Urine Squamous Epithelial Cells Mod <5 /hpf Urine Bacteria Few H None Seen /hpf Urine Glucose Normal Normal mg/dL Urine Opiates Screen Neg NEGATIVE Urine Fentanyl Screen Neg NEGATIVE Urine Barbiturates Screen Neg NEGATIVE Urine Phencyclidine Screen Neg NEGATIVE Urine Amphetamines Screen Neg NEGATIVE Urine Benzodiazepines Screen Neg NEGATIVE Urine Cocaine Screen Neg NEGATIVE Urine Cannabinoids Screen Neg NEGATIVE White Blood Count 9.5 4.4-10.8 10^3/uL Red Blood Count 4.28 4.0-5.20 10^6/uL Hemoglobin 13.4 12.2-16.2 g/dL Hematocrit 38.5 36.0-46.0 % Mean Corpuscular Volume 90.0 80.0-100.0 fL Mean Corpuscular Hemoglobin 31.3 28.0-32.0 pg Mean Corpuscular Hemoglobin Concent 34.7 32.0-36.0 g/dL Red Cell Distribution Width 14.2 11.8-14.3 % Platelet Count 171 140-450 10^3/uL Mean Platelet Volume 10.0 6.9-10.8 fL Neutrophils (%) (Auto) 57.6 37.0-80.0 % Lymphocytes (%) (Auto) 31.6 10.0-50.0 % Monocytes (%) (Auto) 8.7 0.0-12.0 % Eosinophils (%) (Auto) 1.4 0.0-7.0 % Basophils (%) (Auto) 0.7 0.0-2.0 % Neutrophils # (Auto) 5.5 1.6-8.6 10 ^3/uL Lymphocytes # (Auto) 3.0 0.4-5.4 10 ^3/uL Monocytes # (Auto) 0.8 0-1.3 10 ^3/uL Eosinophils # (Auto) 0.1 0-0.8 10 ^3/uL Basophils # (Auto) 0.1 0-0.2 10 ^3/uL Nucleated Red Blood Cells 0.1 % Prothrombin Time 10.2 9.3-11.8 sec Prothrombin Time INR 0.96 0.9-1.15 Activated Partial Thromboplast Time 28.9 24.5-34.5 SEC Sodium Level 138 136-145 mmol/L Potassium Level 3.8 3.5-5.1 mmol/L Chloride Level 105 98-107 mmol/L Carbon Dioxide Level 22 20-31 mmol/L Anion Gap 11 5-15 Blood Urea Nitrogen 12 9-23 mg/dL Creatinine 0.93 0.550-1.02 mg/dL Glomerular Filtration Rate Calc 81 >90 mL/min BUN/Creatinine Ratio 12.9 10.0-20.0 Serum Glucose 109 H 74-106 mg/dL Calcium Level 9.0 8.7-10.4 mg/dL Total Bilirubin 0.5 0.2-1.0 mg/dL Aspartate Amino Transferase (AST) 19 13-40 U/L Alanine Aminotransferase (ALT) 15 7-40 U/L Alkaline Phosphatase 83 46-116 U/L Total Protein 6.0 5.7-8.2 g/dL Albumin 3.7 3.2-4.8 g/dL Treponema pallidum Antibody Non-reactive Negative Hepatitis C Antibody Negative Negative Consulting with Consulting with: None Regarding Consulted with Dr. Tai re: VE findings of swollen cervix, contraction during VE did not effect stretching of cervix and vulva swollen, presenting part still at -1 station. Patient had history of Right hip surgery twice, 2021 & 2022. Requested to talk with patient to consider Primary section due to lack of labor progress in addition to h/o of hip surgery. Assessment Assessment IUP at 39w 1d AMA GDMA2 IOL for above Category I FHR Tracing Arrest of dilation & descent Plan Plan Prepare patient for Primary C- section Discontinue Oxytocin Plan discussed with: Patient, Spouse Visit Coding OBGYN Date of Service: January 21, 2025 Billing Provider: YARON BURDICK CNM HEAT PLANT SPECIALIST Common Visit Codes: [id number] INP/OBS CARE(HIGH) HEAT PLANT SPECIALIST Procedure Codes: 91383-38- NON-STRESS TEST YARON BURDICK CNM January 21, 2025 20:55
[2025-01-21] MEDS: ONDANSETRON HCL 4 MG/2 ML VIAL IV ONE (21:00)
[2025-01-21] MEDS ORDERED: DexAMETHasone SOD PHOS 10MG/1ML VIAL INJ IV PRN (21:00)
[2025-01-21] MEDS ORDERED: ePHEDrine SULFATE 50 MG/ML AMP IV PRN (21:00)
[2025-01-21] MEDS ORDERED: diphenhdrAMINE HCL 50 MG/1 ML VL IV PRN (21:00)
[2025-01-21] MEDS ORDERED: MIDAZOLAM HCL 2MG/2ML 2ml VIAL (1mg/ml) IV PRN (21:00)
[2025-01-21] MEDS: CARBOPROST TROMETHAMINE 250 MCG/1ML VIAL IM ONE (21:00)
--- NOTE | 2025-01-21 21:04 | DVHOP2 ---
Operative Report DATE OF OPERATION: 01/21/25 PREOPERATIVE DIAGNOSES: Term failed induction,arrest of dilatation,ama,gdma2,hx of previous hip surgeryx2 POSTOPERATIVE DIAGNOSES: same SURGEON: Apurva Tai D.O./michaelle ANESTHESIOLOGIST: [place] TYPE OF ANESTHESIA : epidural CONSENT: The patient was informed of the risks and benefits of the procedure. The patient was informed of the risks and benefits of the procedure. These include but are not limited to , complications of anesthesia, postoperative infection, incomplete relief of symptoms, recurrence of symptoms, damage to blood vessels, nerves and tendons, deep venous thrombosis, pulmonary embolism and possible need for repeat surgery in the future. FINDINGS: Baby [g] with Apgars of [8] and [9]. Grossly normal appearing tubes and ovaries. PROCEDURES: Primary low transverse section. PROCEDURE IN DETAIL: The patient was taken to the operating room. She already had an epidural in place. She was then placed in supine position with a leftward tilt. A Pfannenstiel skin incision was made 2 cm above the symphysis pubis. This incision was carried to the underlying layer of fascia. The fascia was nicked in the midline. The incision was extended laterally. The superior aspect of the fascial incision was grasped and elevated. The same procedure was done to the inferior aspect of the fascial incision. The rectus muscles were then in the midline. Peritoneum was identified and entered. Peritoneal incision was extended superiorly and inferiorly with good visualization of the bladder. Bladder blade was inserted. Vesicouterine peritoneum was identified and entered. Lower uterine segment was incised in a transverse fashion. The was delivered from vertex presentation. was baby [f] with Apgars [8] and [9]. Placenta was then removed manually. Uterus was exteriorized and cleared of all clots and debris. The incision was repaired using 0 Vicryl in a double-layered fashion. No ble eding was noted. Uterus was then returned to the abdomen. The gutters were cleared off all clots and debris. Peritoneum was closed using 0 Vicryl, fascia was closed using 0 Maxon, and skin was closed using jillian. The patient tolerated the procedure well. She was taken to the recovery room in stable condition. ESTIMATED BLOOD LOSS: Estimated blood loss was noted to be 800 mL. Visit Coding OBGYN Date of Service: January 21, 2025 Billing Provider: APURVA TAI DO RETAIL SELLING SPECIALIST Common Visit Codes: [id number] SAME DATE (HIGH) RETAIL SELLING SPECIALIST Procedure Codes: [id number] DELIVERY ONLY APURVA TAI DO January 21, 2025 21:04
--- NOTE | 2025-01-21 21:06 | POSTOP ---
Post-Operative Note Post-Operative Note Preop Diagnosis term preg failed induction,gdm,ama,failure to dilate Postop Diagnosis: same Operation performed pltcs Specimen baby girl,apgars 8-9 Anesthesia: Regional Anesthesiologist: [place] Blood Loss(fluid mgmt) 800ml Surgeon Usman Tai Demand Planner michaelle Implant na Complications & Mgmt none Date 01/21/25 Time 21:04 Visit Coding OBGYN Date of Service: January 21, 2025 Billing Provider: USMAN TAI DO ARMATURE WINDER REPAIRER Common Visit Codes: [id number] INP/OBS CARE(HIGH) ARMATURE WINDER REPAIRER Procedure Codes: [id number] DELIVERY ONLY USMAN TAI DO January 21, 2025 21:06
[2025-01-21] MEDS ORDERED: CEPH500C PO (21:07)
[2025-01-21] MEDS: BUPIVACAINE HCL 0.25% P/F 10 ML VIAL ONE (21:16)
[2025-01-21] MEDS: LIDOCAINE W/ EPINEPHRINE 1% 20ML VIAL ONE (21:16)
[2025-01-21] MEDS ORDERED: oxyTOCIN 10 UNIT/ML 10ML VIAL ONE (21:27)
[2025-01-21 21:30] VITALS: PULSE 80; RESP 15; O2SAT 97
--- NOTE | 2025-01-21 21:37 | DVHHP ---
CHIEF COMPLAINT: Failure to progress, arrest of dilatation. HISTORY OF PRESENT ILLNESS: The patient is a 39-year-old 3, para 1 with EDC 01/27/2025 of 39 weeks and admitted for induction of labor. The patient received forced Cytotec followed by Pitocin; however, did not dilate past 8 cm for 5 hours. The patient gives history of hip surgery x 2. Subsequently, the patient is taken for primary . Risks, complications, indications, and alternatives discussed with the patient. Due to the hip surgery, I also advised the patient this would be safer in terms of no further damage to the hip. The patient fully understands and agrees. All questions answered. PAST MEDICAL HISTORY: None. PAST SURGICAL HISTORY: Hip surgery x 2. Appendectomy. SOCIAL HISTORY: None. Previous smoker. FAMILY HISTORY: None. CLINICAL OUTCOMES MANAGER HISTORY: One normal vaginal delivery, one spontaneous AB. REVIEW OF SYSTEMS: Consistent with HPI. PHYSICAL EXAMINATION: VITAL SIGNS: Afebrile. HEENT: Within normal limits. CARDIOVASCULAR: Regular rate and rhythm. LUNGS: Clear to auscultation. BREASTS: Breasts symmetrical, no masses. ABDOMEN: Gravid. PELVIC: 8 cm, cervix is swollen, -1. EXTREMITIES: No clubbing, cyanosis. IMPRESSION: * Intrauterine at 39 weeks, failed induction of labor for GDM. * AMA. * History of previous hip surgery. PLAN: Primary low transverse section. Informed consent obtained. Risks and complications of surgery including infection, bleeding, hematoma formation, injury to bowel, bladder, surrounding organ, possibility of DVT, pulmonary embolism, and risks of anesthesia discussed with the patient. Options reviewed. All questions answered. The patient fully understands. She wishes to proceed with planned procedure. DO ANA Burns/BERENICE TID: [id number] RECEIPT: [id number]
[2025-01-21] MEDS: ACCU-CHEK COMFORT CURVE STRIP VI ONE (21:47)
[2025-01-21] MEDS: HYDROmorphone HCL 2 MG/ML VL/or syr IV PRN (21:47)
[2025-01-21 22:30] VITALS: PULSE 97; RESP 18; O2SAT 97
[2025-01-21 23:17] LABS: Basophils # (auto) 0.1 10 ^3/uL (0-0.2); Basophils % (auto) 0.4 % (0.0-2.0); Eosinophils # (auto) 0 10 ^3/uL (0-0.8); Hematocrit 41.4 % (36.0-46.0); Hemoglobin 14.1 g/dL (12.2-16.2); Lymphocytes # (auto) 1.5 10 ^3/uL (0.4-5.4); Lymphocytes % (auto) 8.1 % (10.0-50.0); Mean Corpuscular Hemoglobin 30.9 pg (28.0-32.0); Mean Corpuscular Hgb Conc. 33.9 g/dL (32.0-36.0); Mean Corpuscular Volume 91.1 fL (80.0-100.0); Monocytes # (auto) 1.1 10 ^3/uL (0-1.3); Monocytes % (auto) 5.6 % (0.0-12.0); Neutrophils # (auto) 16.2 10 ^3/uL (1.6-8.6); Neutrophils % (auto) 85.9 % (37.0-80.0); Platelet Count (auto) 163 10^3/uL (140-450); Red Blood Cells 4.55 10^6/uL (4.0-5.20); Red Cell Distribution Width 14.3 % (11.8-14.3); White Blood Cell 18.9 10^3/uL (4.4-10.8)
[2025-01-22] VITALS (20 sets, daily range): BP systolic 91–123; BP diastolic 46–86; PULSE 66–93; RESP 16–20; TEMP 97.9–98.8; O2SAT 95–100
[2025-01-22] MEDS: ceFAZolin 1GM/50ML 50 ML IV SCH ×2 (04:28→14:45)
[2025-01-22] MEDS: LACTATED RINGER'S 1,000 ML IV SCH (04:32)
--- NOTE | 2025-01-22 05:00 | DVHPN2 ---
Progress Note Date Seen: January 22, 2025 Subjective S: Lochia minimal. Clear liquid diet well tolerated. Lundberg catheter draining clear urine to bag by gravity. Pain relieved with IV analgesics. Passing flatus but no BM yet. w/o problem vital signs Vital Sign Date Time Temp Pulse Resp B/P (MAP) Pulse Ox O2 Delivery O2 Flow Rate FiO2 01/22/25 04:43 76 18 99 01/22/25 00:41 Room Air 01/21/25 22:40 127/73 (91) 01/21/25 22:30 2.0 97 01/21/25 21:30 98.9 98.9 Total Intake and Output 01/21/25 01/21/25 01/22/25 15:00 23:00 07:00 Output Total 800 ml Balance -800 ml medications Current Medications Medications Dose Ordered Sig/Laura Route Start Time Stop Time Status Last Admin Dose Admin Lactated Ringer's 1,000 ml @ 125 mls/hr Q8H IV 01/19/25 21:15 01/21/25 17:49 125 MLS/HR Nalbuphine HCl 10 mg Q4HP PRN IV 01/19/25 21:15 Penicillin G Potassium [id number] units/Dextrose 50 ml @ 100 mls/hr Q4H IV 01/20/25 01:30 Cancel Witch Rachel 1 pad PRN PRN TOP 01/19/25 21:15 01/20/25 05:05 1 PAD Sodium Lauryl Sulfate 240 ml PRN PRN TOP 01/19/25 21:15 01/20/25 05:05 240 ML Benzocaine 1 applic PRN PRN TOP 01/19/25 21:15 01/20/25 05:05 1 APPLIC Misoprostol 50 mcg Q4HPRN PRN PO 01/19/25 21:15 01/20/25 12:41 50 MCG Lidocaine HCl 20 ml ONCE PRN IJ 01/19/25 21:15 Terbutaline Sulfate 0.25 mg ONCE PRN SC 01/20/25 23:30 Oxytocin 1,000 ml @ 6 ml/hr Q24H IV 01/20/25 23:45 01/21/25 01:56 6 ML/HR Dextrose/Lactated Ringer's 1,000 ml @ 125 mls/hr Q8H IV 01/21/25 06:15 01/21/25 06:32 125 MLS/HR Sodium Chloride 500 ml @ 500 mls/hr Q1H PRN IV 01/21/25 08:45 Fentanyl/ Ropivacaine 200 ml @ 12 mls/hr UD EPI 01/21/25 08:45 01/23/25 08:44 Acetaminophen 650 mg Q4HP PRN PO 01/21/25 19:15 01/21/25 19:21 650 MG Lactated Ringer's 1,000 ml @ 125 mls/hr Q8H IV 01/21/25 19:45 01/22/25 04:32 125 MLS/HR Ondansetron HCl 4 mg Q4HP PRN IV 01/21/25 20:15 Diphenhydramine HCl 25 mg Q4HP PRN IV 01/21/25 21:00 Cefazolin Sodium 50 ml @ 100 mls/hr Q8H IV 01/22/25 04:30 01/22/25 20:59 01/22/25 04:28 100 MLS/HR laboratory and microbiology Laboratory Tests 01/21/25 22:56 01/19/25 21:43 Test 01/19/25 21:43 Range/Units Serum Glucose 109 H 74-106 mg/dL Objective A&O x3 NAD. Afebrile, VSS Chest: heart and lung sounds normal. Breasts: Nipples intact w/o cracks or soreness Abdomen: normal BS, soft, non-tender, no rebound or guarding, fundus firm @ U- Lower abdominal Incision site with Sylke dressing on, open to fresh air same clean, dry and intact. No edema, erythema or induration Extremities: no edema or tenderness Lochia - minimal Assessment/Plan A/P: 39 yo now Post operative & ppd #1 s/p Primary Section for doing well. AMA. h/o GDMA2. h/o Hip surgery Blood Type: A Rh: Positive Breast feeding Rubella Immune Pain control with IV medications Diet: Advance as tolerated Bowel regimen: Increase fluid intake and fiber in diet, Laxative PRN PP Contraception Plan: Undecided Plan discussed with: Patient Visit Coding OBGYN Date of Service: January 22, 2025 Billing Provider: YARON BURDICK CNM WAITER/WAITRESS CLUB Common Visit Codes: [id number] INP/OBS CARE(HIGH) YARON BURDICK CNM January 22, 2025 05:00
[2025-01-22] MEDS: ACETAMINOPHEN IV 1000 MG/100ML (10MG/ML) IV PRN (07:57)
[2025-01-22 08:59] LABS: Basophils # (auto) 0.1 10 ^3/uL (0-0.2); Basophils % (auto) 0.4 % (0.0-2.0); Eosinophils # (auto) 0 10 ^3/uL (0-0.8); Eosinophils % (auto) 0.2 % (0.0-7.0); Hematocrit 35.7 % (36.0-46.0); Hemoglobin 12.5 g/dL (12.2-16.2); Lymphocytes # (auto) 1.9 10 ^3/uL (0.4-5.4); Lymphocytes % (auto) 13.4 % (10.0-50.0); Mean Corpuscular Hemoglobin 31.6 pg (28.0-32.0); Mean Corpuscular Hgb Conc. 34.9 g/dL (32.0-36.0); Mean Corpuscular Volume 90.7 fL (80.0-100.0); Monocytes % (auto) 7.2 % (0.0-12.0); Neutrophils # (auto) 11.2 10 ^3/uL (1.6-8.6); Neutrophils % (auto) 78.8 % (37.0-80.0); Platelet Count (auto) 149 10^3/uL (140-450); Red Blood Cells 3.94 10^6/uL (4.0-5.20); Red Cell Distribution Width 14.1 % (11.8-14.3); White Blood Cell 14.2 10^3/uL (4.4-10.8)
[2025-01-22] MEDS: SODIUM CHLORIDE 0.9% 500 ML IV PRN (16:50)
[2025-01-22] MEDS ORDERED: HYDROcodone-ACET 5/325MG TAB PO PRN ×2 (20:00)
[2025-01-22] MEDS: DOCUSATE SOD 100 MG CAP PO SCH (22:06)
[2025-01-22] MEDS: SIMETHICONE 80 MG CHEWABLE TABLET PO SCH (22:06)
[2025-01-22] MEDS: IBUPROFEN 800 MG TAB PO PRN (22:15)
[2025-01-23] MEDS: ceFAZolin 1GM/50ML 50 ML IV SCH (00:22)
[2025-01-23] MEDS: CEPHALEXIN 250 MG CAP PO SCH (01:07)
--- NOTE | 2025-01-23 06:22 | DVHPN2 ---
Chief Complaints Patient reports: No new complaints, Feels better Nursing reports: No new complaints, No chest pain, No dizziness, No cough Objective Vitals Vital Signs Date Time Temp Pulse Resp B/P (MAP) Pulse Ox O2 Delivery O2 Flow Rate FiO2 01/23/25 03:00 01/22/25 23:00 97.9 72 16 98 97.9 01/22/25 19:00 Room Air 01/21/25 22:30 2.0 97 Medications Current Medications Medications (Trade) Dose Ordered Sig/Laura Route PRN Reason Start Time Stop Time Status Last Admin Acetaminophen/ Hydrocodone Bitart ([place] 5/325MG Tab) 1 tab Q4HPRN PRN PO FOR PAIN 1-6 01/22/25 20:00 Acetaminophen/ Hydrocodone Bitart ([place] 5/325MG Tab) 2 tab Q4HPRN PRN PO FOR PAIN 7-10 01/22/25 20:00 Cephalexin (Keflex Capsule) 500 mg QID PO 01/23/25 00:00 01/23/25 05:24 Dimethicone (Mylicon Tab) 80 mg QID PO 01/22/25 22:00 01/23/25 05:24 Docusate Sodium (Colace Capsule) 100 mg Q12HR PO 01/22/25 22:00 01/22/25 22:06 Ibuprofen (Motrin Tablet) 800 mg Q8HP PRN PO BREAKTHROUGH PAIN 01/22/25 20:00 01/23/25 06:06 General: Normal Lungs: Normal Cardiovascular: Normal Abdominal: Normal (WOUND CLEAN DRY AND INTACT POSITIVE BOWEL SOUNDS) Musculoskeletal: Normal Extremities: Normal Skin: Normal Neurological: Normal Studies Laboratory Tests 01/22/25 08:40 01/19/25 21:43 Test 01/19/25 21:43 Range/Units Serum Glucose 109 H 74-106 mg/dL Ass/Plan Assessment POSTOP DAY 2 DOING SECTION STABLE IMPROVED Plan [facility] RAEL ZAMUDIO DO January 23, 2025 06:22
[2025-01-23 07:00] VITALS: BP 118/70; PULSE 73; RESP 20; TEMP 98; O2SAT 98
[2025-01-23 11:00] VITALS: BP 117/61; PULSE 81; RESP 16; TEMP 98.4; O2SAT 99
[2025-01-23 15:23] VITALS: BP 114/63; PULSE 64; RESP 16; TEMP 98.9; O2SAT 98
--- NOTE | 2025-01-23 17:46 | DVHDS2 ---
Obstetrics Discharge Summary Obstetrics Discharge Summary Date of Admission: January 19, 2025 Date of Discharge: January 23, 2025 Reason For Admission: Induction of Labor Procedures: NST, Mgmt of Obstetrics Compli (GDM, A2/AMA) Intrapartum Procedures: (primary LTCS for failed IOL) Procedures: Antibiotics, Hct/date: (01/22/25), Hgb/date: (01/22/25), Others (MMR vaccine given) Operative Complicat: Others (fundus 1 below U/firm/midline, light lochia, Incision (sylke dressing open to air, clean/dry/intact)) Discharge Diagnosis: Term -Delivered Discharge Information: Activity (as tolerated, no heavy lifting and nothing in the vagina for 6 weeks), Diet (Routine), Medications (Rx sent), Instructions (Routine), Discharge to (Home), Accompanied by (family), Discarge date (01/24/25) Visit Coding OBGYN Date of Service: January 23, 2025 Billing Provider: MYRA ROY CNM GROCERY DEPARTMENT MANAGER Common Visit Codes: 97836-LHU/OBS DISCH DAY <30MIN MYRA ROY CNM January 23, 2025 17:46
[2025-01-23] MEDS ORDERED: IBUP-1456 PO (17:49)
[2025-01-23 19:00] VITALS: BP 110/64; PULSE 95; RESP 16; TEMP 99.2; O2SAT 98
[2025-01-23 21:23] VITALS: TEMP 99.2
[2025-01-23] MEDS: MEASLES, MUMPS & RUBELLA VAC(MMRII) 0.5ML SC ONE (21:28)
[2025-01-24] MEDS ORDERED: MEASLES, MUMPS & RUBELLA VAC(MMRII) 0.5ML SC ONE (07:00)
== END 2025-01-23 22:34 | disposition home or self-care (01) | DRG 540 ==
LOC: LDRP 20:51
PROVIDERS: ADMIT Obstetrics & Gynecology; ATTEND Obstetrics & Gynecology
PROC: 10D00Z1 Extraction of Products of Conception, Low, Open Approach (ICD-10-PCS; principal; 2025-01-21 20:22)
DX: O24.425 Gestational diabetes mellitus in childbirth, controlled by oral hypoglycemic drugs (principal); O61.9 Failed induction of labor, unspecified; O62.2 Other uterine inertia; Z37.0 Single live birth; Z87.891 Personal history of nicotine dependence; Z3A.38 38 weeks gestation of pregnancy
CPT/HCPCS: 36415; 59200; 62282; 80053; 80307; 81001; 81002; 82948; 82962; 85025; 85610; 85730; 86780; 86803; 86850; 86900; 86901; 90471; 94760; 94762; 96360; 96361; 96365; 96366; G0378; J0131; J2250; J2590; J3490; J7060

== ENCOUNTER → 2025-04-27 | Day surgery (SDC) | payer MEDICAID ==
[2025-04-25 11:04] LABS: Urine Protein, UAD Negative (Negative)
[2025-04-25 11:08] LABS: INR 1.08 (0.9-1.15); Partial Thromboplastin Time 33.3 SEC (24.5-34.5); Prothrombin Time 11.4 sec (9.3-11.8)
[2025-04-25 11:12] LABS: Hematocrit 44.0 % (36.0-46.0); Hemoglobin 15.1 g/dL (12.2-16.2); Mean Corpuscular Hemoglobin 30.4 pg (28.0-32.0); Mean Corpuscular Volume 88.4 fL (80.0-100.0); Nucleated Red Blood Cells % 0.0 %
[2025-04-25 11:29] LABS: Alanine Aminotransferase 13 U/L (7-40); Albumin 4.7 g/dL (3.2-4.8); Alkaline Phosphatase 70 U/L (46-116); Anion Gap 10 (5-15); BUN/Creatinine Ratio 13.2 (10.0-20.0); Blood Urea Nitrogen 14 mg/dL (9-23); Calcium 9.9 mg/dL (8.7-10.4); Carbon Dioxide 27 mmol/L (20-31); Chloride 104 mmol/L (98-107); Glucose 83 mg/dL (74-106); Potassium 4.4 mmol/L (3.5-5.1); Sodium 141 mmol/L (136-145); Total Protein 7.4 g/dL (5.7-8.2)
[2025-04-25 11:30] LABS: Bilirubin, Total 0.9 mg/dL (0.2-1.0)
--- NOTE | 2025-04-25 13:42 | DVHHP ---
ADMIT DATE: 04/27/2025 CHIEF COMPLAINT: Desires bilateral tubal ligation. Desires salpingectomy. HISTORY OF PRESENT ILLNESS: The patient is a 39-year-old 2 para 2 admitted for bilateral tubal ligation. The patient wants bilateral salpingectomy. She had one section and one normal vaginal delivery. PAST MEDICAL HISTORY: Hip issues. PAST SURGICAL HISTORY: Hip arthroscopy, appendectomy, . SOCIAL HISTORY: None. FAMILY HISTORY: None. OBSTETRIC/GYNECOLOGIC HISTORY: One section, one vaginal delivery. REVIEW OF SYSTEMS: Consistent with HPI. PHYSICAL EXAMINATION: VITAL SIGNS: Stable, afebrile. HEENT: Within normal limits. CARDIOVASCULAR: Regular rate and rhythm. LUNGS: Clear to auscultation. BREASTS: Symmetrical. No masses. ABDOMEN: Soft and nontender. PELVIC: External genitalia within normal limits. Vagina normal. Cervix grossly normal appearing. Uterus 8-week size. Adnexa nonpalpable. EXTREMITIES: No clubbing, cyanosis, or edema. IMPRESSION: Multiparity. Desires tubal sterilization. PLAN: Laparoscopy. Possible bilateral salpingectomy in event of no salpingectomy. Bilateral placement of Filshie clips. Informed consent obtained. Risks, complications, failure rate discussed with the patient. Options reviewed. All questions answered. The patient fully understands. Failure rate with procedure, possibility of DVT, PE, possibility of exploratory laparotomy discussed with the patient. The patient wishes to proceed with planned procedure. DO ANA Burns/ANDRES/SHILPA TID: [id number] RECEIPT: [id number]
[~2025-04-27] VITALS: Ht 162.6 cm; Wt 76.2 kg
[~2025-04-27] MED LIST changes: -CEPH250C PO; -CHOL20007 PO; +HYDR-4072 PO; +HYDROmorphone HCL 2 MG/ML VL/or syr ONE; +IBUP-1456 PO; +LACTATED RINGER'S 1,000 ML IV SCH; -METF-370 PO; +MIDAZOLAM HCL 2MG/2ML 2ml VIAL (1mg/ml) IV PRN; +MIDAZOLAM HCL 2MG/2ML 2ml VIAL (1mg/ml) ONE; +MORPHINE SULFATE 4 MG/ML SYR/VIAL IV PRN; +ONDANSETRON HCL 4 MG/2 ML VIAL IV ONE; +ONDANSETRON HCL 4 MG/2 ML VIAL ONE; -PREN1TAB71 OR; +PROPOFOL 10 MG/ML 20 ML IV ONE; +ROCURONIUM 10MG/ML 10ML VIAL IV ONE; +ZOFR4T PO; +fentaNYL CITRATE 100 MCG/2 ML VL ONE; +hydrALAZINE HCL 20 MG/ML VL IV PRN
[2025-04-27] MEDS: ceFAZolin 2 GM/D5W50ml 50 ML IV ONE (06:28)
[2025-04-27] MEDS: LIDOCAINE W/ EPINEPHRINE 1% 20ML VIAL ONE (07:16)
[2025-04-27] MEDS: BUPIVACAINE 0.5% P/F INJ 10 ML VIAL ONE (07:16)
[2025-04-27 08:30] VITALS: PULSE 89; RESP 9; TEMP 98; O2SAT 97
[2025-04-27] MEDS: ONDANSETRON HCL 4 MG/2 ML VIAL IV PRN (08:48)
[2025-04-27] MEDS: HYDROmorphone HCL 2 MG/ML VL/or syr IV PRN (09:00)
[2025-04-27 09:45] VITALS: BP 137/81; PULSE 66; RESP 12; O2SAT 100
--- NOTE | 2025-04-27 12:32 | DVHDS2 ---
Physician Discharge Progress N Final Diagnosis: desires tubal sterilization Operations or Procedures: Operations or Procedures lap bilateral salpingectomy Condition on Discharge: Good Disposition: Home Discharge Instructions: Diet: Regular Activity: Light activity Follow Up/Referral: as sched Medications: stephanie hanna Follow Up Care: Specialist: 1w Discharge Statement: "Patient was advised to return to the ER or call 911 if any headaches, dizziness, shortness of breath, chest pain, abdominal pain, bleeding, fevers, or worsening of medical condition. Patient was counseled about treatment plan, medications, possible side effects, patientverbalized understanding. All questions were answered to the best of my ability. This discharge took greater then 30 minutes in planning, reviewing documentation, counseling the patient, and discussing with other team members." Visit Coding OBGYN Date of Service: Apr 27, 2025 Billing Provider: USMAN EPSTEIN DO WEDDING COORDINATOR Common Visit Codes: [id number] OBS CARE (HIGH) WEDDING COORDINATOR Procedure Codes: 41327-FJG.SURG:W/REM ADNEXAL STRUCT, 66501-BQI.SURG:ON OVIDUCT/OVARY USMAN EPSTEIN DO Apr 27, 2025 12:32
--- NOTE | 2025-04-27 12:34 | POSTOP ---
Post-Operative Note Post-Operative Note Preop Diagnosis desires tubal sterilization Postop Diagnosis: desires tubal sterilization Operation performed lap bilateral salpingectomy Specimen both tubes Anesthesia: General Anesthesiologist: waleska Blood Loss(fluid mgmt) 20ml Surgeon Usman Tai [place] Press Operator michaelle Implant clips Complications & Mgmt none Date 04/27/25 Time 12:33 Visit Coding OBGYN Date of Service: Apr 27, 2025 Billing Provider: USMAN TAI DO UI UX DEVELOPER Common Visit Codes: [id number] OBS CARE (HIGH) UI UX DEVELOPER Procedure Codes: 02018-NAV.SURG:W/REM ADNEXAL STRUCT, 52832-BEI.SURG:ON OVIDUCT/OVARY USMAN TAI DO Apr 27, 2025 12:34
--- NOTE | 2025-04-27 12:47 | DVHOP2 ---
Operative Report DATE OF OPERATION: 04/27/25 PREOPERATIVE DIAGNOSES: 1. Desires elective tubal sterilization. 2. desires bilateral salpingectomy POSTOPERATIVE DIAGNOSES: 1. Desires elective tubal sterilization. 2. same SURGEON: Apurva Tai D.O./michaelle ANESTHESIOLOGIST: waleska TYPE OF ANESTHESIA : General. CONSENT: The patient was informed of the risks and benefits of the procedure. The patient was informed of the risks and benefits of the procedure. These include but are not limited to , complications of anesthesia, postoperative infection, incomplete relief of symptoms, recurrence of symptoms, damage to blood vessels, nerves and tendons, deep venous thrombosis, pulmonary embolism and possible need for repeat surgery in the future. FINDINGS: Cervix is grossly normal appearing. Uterus is 9 weeks' size. Adnexa nonpalpable.bilat tubes sent to pathology COMPLICATIONS: None. BLOOD PRODUCTS USED: None. PROCEDURES: Laparoscopic bilateral salpingectomy PROCEDURE IN DETAIL: The patient was taken to the operating room where she was placed under general anesthesia. The patient was then prepped and draped in the usual sterile manner in the dorsal lithotomy position. The bladder was emptied using a straight catheter. Examination under anesthesia revealed the above findings. A weighted speculum was placed in the vagina. The anterior lip of the cervix was grasped using single-tooth tenaculum. Cervix was dilated. Uterus sounded to 9 cm. HUMI catheter was placed. Attention was then turned to the abdomen where a Veress needle was introduced. Abdomen was distended with 3L of CO2 gas. Using Visiport, abdomen was entered under direct visualization. Survey of abdominal cavity revealed normal finding. A 8 mm trocar was placed into the suprapubic region. a 12mm trocar was placed on left lat aspect of abdome ,bilat tubes were excised using anne stapler and sent for pathology. No bleeding was noted. All the instruments were removed from the abdomen and pel vis. CO2 gas released. Incisional ports were closed using #4-0 and 0 vicroyl.Vicryl and jillian for the larger port. The patient tolerated the procedure well. All instruments were removed from the patient's cervix. The patient was taken to the recovery room in a stable condition. ESTIMATED BLOOD LOSS: 20 mL Visit Coding OBGYN Date of Service: Apr 27, 2025 Billing Provider: APURVA TAI DO SNAILER Common Visit Codes: [id number] OBS CARE (HIGH) SNAILER Procedure Codes: 93762-FSR.SURG:W/REM ADNEXAL STRUCT, 91853-ARC.SURG:ON OVIDUCT/OVARY APURVA TAI DO Apr 27, 2025 12:47
== END | disposition home or self-care (01) ==
LOC: SUR 06:18
PROVIDERS: ATTEND Obstetrics & Gynecology
DX: Z30.2 Encounter for sterilization (principal); Z79.899 Other long term (current) drug therapy; Z90.49 Acquired absence of other specified parts of digestive tract; Z98.891 History of uterine scar from previous surgery
CPT/HCPCS: 36415; 58661; 80053; 81001; 81025; 84702; 85025; 85610; 85730; 86850; 86900; 86901; 88305; J0690; J1100; J1171; J2250; J2405; J2704; J3010; J3490